=== PATIENT | male | born 1965 | race Caucasian/White ===

== ENCOUNTER 2016-09-09 23:28 | Inpatient (IN) | payer OTHER ==
--- NOTE | ~2016-09-09 | DS ---
Unit #: [id number] #: [id number] Patient: PAULO MELISSA [id number] [address] [address] [id number] MR#: [id number] NAME: PAULO MELISSA. ROOM: 547 Age: 51 Sex: M Admission Date: 09/10/2016 : 1965 Discharge Date: 09/13/2016 Attending Physician: Marychuy Baker M.D. Primary Care Physician: No Primary Care Physician DISCHARGE SUMMARY PRINCIPAL DIAGNOSES 1. Acute exacerbation of chronic obstructive pulmonary disease. 2. Acute exacerbation of chronic systolic congestive heart failure with an ejection fraction of approximately 15%. 3. Polycythemia likely secondary to obstructive sleep apnea. 4. Acute alcohol intoxication. 5. Chronic alcohol abuse without dependence. 6. Atypical lymphocytes secondary to alcohol abuse. Flow cytometry is pending. 7. Macrocytosis secondary to obstructive sleep apnea. 8. Coronary artery disease. 9. Insulin resistance with a hemoglobin A1C of 6.2. 10. Tobaccoism. 11. Obesity. 12. Hypertension. 13. Hyperlipidemia. CONSULTANTS 1. Dr. Ramirez, cardiology. 2. Dr. Frazier, hematology. 3. Dr. Lee, pulmonology. PROCEDURES 1. Two-dimensional echocardiogram on September 10, 2016 with ejection fraction of 15%. Moderately increased size of left ventricle and left ventricular hypertrophy noted. Trace mitral regurgitation noted. 2. Left-sided heart catheterization on September 13, 2016 with ejection fraction of approximately 15% to 20%. Normal left main, 75% in-stent stenosis of the LAD, left circumflex is normal and right coronary artery has 75% stenosis in the mid segment. 3. Chest x-ray on September 09, 2016 with cephalization of pulmonary vasculature consistent with edema. CLINICAL HISTORY AND HOSPITAL COURSE Mr. Melissa is a 51-year-old male who presents to the emergency department with a several-month history of progressive shortness of breath. Please refer to H and P for further details. In the emergency department patient underwent chest x-ray revealing pulmonary edema and BNP was found to be elevated. However, he was also wheezy upon examination and had a low normal oxygen level. He was also intoxicated. Please refer to H and P for further details. In regard to the patient's hypoxia, he was placed on oxygen therapy for a Unit #: [id number] #: [id number] Patient: PAULO MELISSA short period. He was also placed on IV steroids and given diuretics. In regard to his pulmonary edema Dr. Ramirez was consulted. Patient underwent two-dimensional echocardiogram with findings as noted. Patient does have a history of significant coronary artery disease in association with significant medical noncompliance. Troponins were all negative but given his risk factors and his low EF he underwent left-sided heart cath with findings as noted. Unfortunately at this point there is not much intervention for the patient's LAD. However, after discussion between the patient and Dr. Ramirez, the plan is for patient to cease tobacco use, cease alcohol use, take his medications and Dr. Ramirez will reevaluate for stenting of the right coronary artery in the office. Of course, if patient develops signs and symptoms of chest pain he will stent before then. Will also evaluate for AICD placement as an outpatient. He will be discharged home on medications as outlined below. In regard to the patient's wheezing, again he was placed on IV steroids. For a short period these had to be increased and now they have been tapered down. Patient has had normal oxygen saturations ambulating on room air in the low 90s. However, he does have hypoxia at nighttime in association with some significant macrocytic polycythemia, likely indicating some hypoxia at night. For this reason Dr. Lee was consulted and Patient will undergo outpatient polysomnography. In regard to the patient's elevated alcohol level, he was placed on CIWA protocol but never went into any signs of withdrawal. We have discussed alcohol cessation prior to discharge. Dr. Frazier was consulted regarding atypical lymphocytes. Flow cytometry has been done and is currently pending. Patient has not any other B type symptoms and this will just be follows up after discharge. Patient today is clinically stable and will be discharged home. DISCHARGE CONDITION Stable. DISCHARGE STATUS Discharge to home. DISCHARGE MEDICATIONS 1. Symbicort 80/4.5 mcg two puffs b.i.d. 2. Ventolin inhaler two puffs q.4 h. p.r.n. for shortness of breath. 3. Prednisone 10 mg tablets four tablets for two days, three tablets for two days, two tablets for two days, one tablet for two days then discontinue. 4. Coreg 6.25 mg p b.i.d. 5. Lasix 40 mg daily. 6. Atorvastatin 80 mg q.h.s. 7. Lisinopril 5 mg daily. 8. Spironolactone 25 mg daily. 9. Doxycycline 100 mg p.o. b.i.d. for four days. 10. Nitroglycerin 0.4 mg sublingual q.5 minutes p.r.n. for chest pain. 11. Aspirin 81 mg daily. DISCHARGE INSTRUCTIONS 1. The patient was instructed to follow a heart-healthy constant carb diet and he did receive diabetic education. 2. He can increase activity as tolerated. Unit #: [id number] #: [id number] Patient: PAULO MELISSA 3. To refrain from any further alcohol or tobacco use. FOLLOWUP 1. The patient will follow up with Dr. Ramirez as instructed. 2. He will follow up with Dr. David Lee in two weeks and again needs outpatient polysomnography and PFTs. Time spent on discharge 41 minutes. Dictated by... Marychuy Baker M.D. Leo/feliz TD: 09/15/2016 21:36 JOB #: [id number] DISCHARGE SUMMARY X Marychuy Baker MD X DISCHARGE SUMMARY
--- NOTE | ~2016-09-09 | A ---
[facility] Nutrition Therapy DATE: 09/12/16 Patient: PAULO Abbasi SHIN Physician: MILAN Address: [address] [place] [address] DRIVE Room/Bed: [address] [place] [address], Zip: [place] [address] Admit Date: 09/10/16 Date of : [birth year] Height: 5 5 Weight: 201 91.4 NUTRITIONAL ASSESSMENT: REASON: CONSULT RE: DIET EDUCATION PT S 51 Y.0. MALE ADMITTED FOR ACUTE COPD EXAC HT: 5'5", WT: 201# (91 KG), BMI: 33.4 RD ATTEMPTED TO PROVIDE WRITTEN AND VERBAL CC DIET EDUCATION. PT SLEEPY/LETHARGIC AT TIME OF VISIT. PT REPORTS "I ALREADY KNOW WHAT TO DO WITH MY DIET". RD LEFT WRITTEN MATERIAL AT BEDSIDE AT BEDSIDE. RD TO REMAIN AVAILABLE. RECOMMENDATIONS: 1. ENCOURAGE COMPLIANCE OF CURRENT DIET ORDER=CC+HH RD WILL F/U PER PROTOCOL Respectfully, ORLANDO LEMA MS, RD, LD Food and Nutritional Services [facility] cc: client file
--- NOTE | ~2016-09-09 | EKG ---
PATIENT: PAULO MELISSA UNIT #: [id number] Ventricular Rate: 98 BPM Atrial Rate: 98 BPM P-R Interval: 152 ms QRS Duration: 102 ms Q-T Interval: 384 ms QTC Calculation(Bezet): 490 ms P [place]: 63 degrees Calculated R Bon[place]: -70 degrees Calculated T Bon[place]: 32 degrees Diagnosis Line: Normal sinus rhythm Diagnosis Line: Possible Left atrial enlargement Diagnosis Line: Left axis deviation Diagnosis Line: Poor R wave progression questionable lead position Diagnosis Line: or body habitus Diagnosis Line: Abnormal ECG Diagnosis Line: When compared with ECG of 18-JUN-2016 15:31, Diagnosis Line: No significant change was found Diagnosis Line: Confirmed by ROZINA BARBA MD ([id number]) on Diagnosis Line: 09/11/2016 10:36:49 PM INTERPRETING MD: JERRY
--- NOTE | ~2016-09-09 | CO ---
Unit #: [id number] #: [id number] Patient: PAULO MELISSA [id number] [address] [place], [place] [address] [id number] I MR#: [id number] NAME: PAULO MELISSA. ROOM: 547 Age: 51 Sex: M Admission Date: 09/10/2016 : 1965 Attending Physician: Marychuy Baker M.D. CONSULTATION REPORT HISTORY OF PRESENT ILLNESS A 51-year-old white male, we were asked to see for obstructive sleep apnea and COPD, and admitted to the hospital with increasing shortness of breath. Chest x-ray reveals cardiomegaly with an increased pulmonary vascular congestion. He has about a 25 pack year history of smoking. He has had a cough productive of white sputum. No fevers or chills. He has noted some increased lower extremity edema. He has noted increased dyspnea on walking and at work. He does have a history of loud snoring, frequent awakenings, restless sleep, and daytime sleepiness. He has been told by family members that he stops breathing at night and likely has obstructive sleep apnea. He has never been studied for sleep apnea. PAST MEDICAL HISTORY Significant for coronary artery disease, status post [place]. He is also status post PCI. He has a history of systolic congestive heart failure with an ejection fraction of 15%. He has a history of alcohol abuse. He is a binge drinker. Smoking history as noted. He has used cocaine in the past. He has chronic back pain and history of seizures. ALLERGIES He has no known allergies. MEDICATIONS Apparently only albuterol. FAMILY HISTORY Coronary artery disease and congestive heart failure. SOCIAL HISTORY Works at [employer], does walk to work daily but has noted increased shortness of breath. Smokes one pack of cigarettes a day for 25 years, but is trying to quit. Binge drinking of alcohol. Denies other illicit drugs. Did use cocaine in the past. REVIEW OF SYSTEMS CONSTITUTIONAL: No fevers or chills. HEENT: Some shortness of breath as noted. Cough as noted. CARDIAC: No chest pain or palpitations. GI: No nausea or vomiting. : No hematuria or dysuria. ENDOCRINE: No polyuria or polydipsia. HEMATOLOGIC: No easy bruising or bleeding. SKIN: No rash. PSYCHIATRIC: Affect denies. The patient does have a history of chronic Unit #: [id number] #: [id number] Patient: SHINPAULO. PHYSICAL EXAMINATION VITAL SIGNS: Blood pressure is 110/68, pulse 79, respiratory rate 20, afebrile. HEENT: Normocephalic and atraumatic. Pupils are equal, round, and reactive. Sclerae nonicteric. Nasal passages patent. Posterior pharynx clear. Mallampati IV. NECK: Supple. Trachea is midline. No cervical or supraclavicular lymphadenopathy. LUNGS: Reveal diminished breath sounds. Crackles in the bases. CARDIAC: Heart sounds distant. Regular rate and rhythm. Could not appreciate murmur, rub, or gallop. ABDOMEN: Protuberant, nontender, bowel sounds present. Umbilical hernia noted. No hepatosplenomegaly could be appreciated. EXTREMITIES: Without clubbing, cyanosis, or edema. Diminished peripheral pulses. NEUROLOGIC: Awake and oriented x3. Cranial nerves intact. Muscle strength symmetric bilaterally. DIAGNOSTIC STUDIES IMAGING STUDIES: Chest x-ray, personally reviewed as noted above. LABORATORY RESULTS: Chemistries reviewed. Creatinine is 1.1. Cardiac enzymes were negative. BNP is 609. TSH is 0.91. Alcohol level 394 on admission on the . White count 10,000, hematocrit 53.2, platelet count normal. Admission hematocrit was 46.4. IMPRESSION 1. Congestive heart failure, acute systolic. 2. Coronary artery disease. 3. Ejection fraction of 15%. 4. Chronic obstructive pulmonary disease with history of tobacco abuse. 5. Probable obstructive sleep apnea with history of snoring, restless sleep, witnessed apneic episodes, daytime sleepiness, and polycythemia, mild. 6. Tobacco and alcohol use, history of cocaine use. PLAN We will begin bronchodilator therapy, O2 to maintain adequate saturations. Outpatient evaluation with PFTs and PSG for evaluation of obstructive sleep apnea and treatment with CPAP. Today, we discussed sleep apnea, with his policy adviser, some of his treatment options in detail. We will check overnight oximetry. Further recommendations pending this. Dictated by... Corey Lee M.D. EVA/hans TD: 09/13/2016 00:54 JOB #: [id number] Unit #: [id number] #: [id number] Patient: PAULO MELISSA CONSULTATION REPORT X Corey Lee MD CONSULTATION REPORT
--- NOTE | ~2016-09-09 | HP ---
Unit #: [id number] #: [id number] Patient: PAULO MELISSA [id number] [address] [place], [place] [address] [id number] I MR#: [id number] NAME: PAULO MELISSA. ROOM: 547 Age: 51 Sex: M Admission Date: 09/10/2016 : 1965 Attending Physician: Cecilio Chambers M.D. Primary Care Physician: No Primary Care Physician HISTORY AND PHYSICAL CHIEF COMPLAINT Shortness of breath. HISTORY OF PRESENT ILLNESS Mr. Melissa is a 51-year-old, male with an extensive medical history who presents to the ER for above. I will note history is taken from patient, but he is a rather vague historian and he is difficult to obtain details from. Patient states he has been progressive short of breath for the last 6-9 months. He walks to work daily and he has noticed over the last several months that he has to stop while walking to work because he feels short of breath. This particularly got worse over the last 2-3 days. This has been associated with a cough that is nonproductive particularly over the last several days, but has also been associated with some swelling. Patient intermittently states he has fevers. He also intermittently has night sweats though he does not soak the bed. He continues to smoke, but has cut down from a pack per day to 1-2 cigarettes per day. He began feeling worse and thus presented to the emergency department. Upon presentation, vital signs were stable with O2 sats of 90% on room air. Patient was afebrile. Chest x-ray revealed pulmonary edema. Patient was given 125 mg of Solu-Medrol and 40 of Lasix and subsequently admitted. He still states he is feeling short of breath and continued to cough during examination. He endorses shortness of breath lying flat and symptoms of paroxysmal nocturnal dyspnea, as well. He has not seen any doctors in several years. I will also note patient is acutely intoxicated with an alcohol level of almost 400 upon presentation. Patient is being admitted for further evaluation. PAST MEDICAL HISTORY 1. Coronary artery disease, status post [place] x3. Patient had a significant myocardial infarction in 2009 at [facility] with a troponin of 149. At that time, he had angioplasty of the LAD with associated intrastent stenosis and thrombectomy of the LAD and second diagonal branch of the LAD. Patient also had MIs in 2006 and 2007. 2. Systolic congestive heart failure. Last two-dimensional echocardiogram at this hospital in 2012 revealed an ejection fraction of 15% to 20%. This was felt to be ischemic in origin. 3. Alcohol abuse, reportedly a binge drinker. 4. Hyperlipidemia. 5. Tobaccoism. 6. Prior history of cocaine use. 7. Chronic back pain. 8. Prior history of seizure. PAST SURGICAL HISTORY Unit #: [id number] #: [id number] Patient: PAULO MELISSA Coronary stenting in 2009, as previously noted above, with stenting in 2004 and 2007 as well. ALLERGIES No known drug allergies. HOME MEDICATIONS Reportedly albuterol only. FAMILY HISTORY Significant for coronary artery disease and congestive heart failure. SOCIAL HISTORY Patient works at [employer] and does walk to work daily. He smokes 1-2 cigarettes per day and binge drinks alcohol, but really will not quantify an amount nor will he specifically give me frequency. Denied illicit drug use. REVIEW OF SYSTEMS Again, shortness of breath and cough, as noted above. He does intermittently have chest pain, which is more present coughing. He denies any nausea, vomiting, constipation, diarrhea, and dysuria. He denies having any recent falls. He does have night sweats, but denies really losing much weight. He does endorse lower extremity edema. Otherwise, 10-point review of systems was reviewed and is negative. PHYSICAL EXAMINATION VITAL SIGNS: Temperature 97.7, blood pressure 137/95, pulse rate 95, respiratory rate 18, and oxygen saturation is 92% on room air. GENERAL: Patient is awake. He is alert. He is oriented x3, but is anxious. HEENT: Pupils equal, round, and reactive to light bilaterally. Anicteric sclerae. No conjunctival pallor. Oropharynx with moist mucous membranes. No erythema or exudate. Patient is missing several teeth and dentition is poor. NECK: Supple. No lymphadenopathy. No thyromegaly. No significant JVD. HEART: Regular rate and rhythm without murmur, rub, or gallop. LUNGS: Reveal diffuse crackles bilaterally. No appreciable wheezes. Breath sounds are diminished. ABDOMEN: Obese, soft, nontender, and nondistended. Positive bowel sounds. Could not appreciate any hepatosplenomegaly, but examination was limited secondary to positioning. EXTREMITIES: No cyanosis or clubbing and trace lower extremity nonpitting edema. Pedal pulses 2/4. SKIN: Warm and moist without rash grossly. NEUROLOGIC: Cranial nerves, II-XII, intact. Sensation, strength, and deep tendon reflexes are grossly normal. PSYCHIATRIC: (1) anxious, but appropriate affect. No suicidal or homicidal ideation. DIAGNOSTIC STUDIES LABORATORY: Lab work done in the emergency department reveals negative troponin of 0.05 upon presentation. CBC reveals white blood cell count of 6.8, hemoglobin 16, platelet count of 162,000, and MCV of 107. Differential, however, reveals 38% neutrophils and 55% lymphocytes, some of which are noted to be atypical. BNP is elevated at 609. Basic metabolic panel reveals a sodium of 135, potassium 4.2, chloride 98, bicarb 26, BUN 6, creatinine 0.8, and glucose of 118. Alcohol is 394. Unit #: [id number] #: [id number] Patient: PAULO MELISSA IMAGING: Chest x-ray reveals significant pulmonary edema and appears to be to also have an associated right-sided pleural effusion and significant cardiomegaly. ASSESSMENT 1. Acute exacerbation of chronic systolic congestive heart failure with last known ejection fraction of approximately 15% to 20%. 2. Mild exacerbation of COPD. 3. Acute alcohol intoxication. 4. Atypical lymphocytes. 5. Macrocytosis. 6. Coronary artery disease, status post stenting x3. 7. Chronic alcohol abuse with questionable dependence. 8. Tobaccoism. 9. History of hyperlipidemia. 10. Obesity. PLAN 1. Will admit patient to telemetry as inpatient. 2. Place patient on Lasix 40 mg IV q.12 hours and obtain a two-dimensional echocardiogram. Will also consult Dr. Ramirez given patient's significant coronary history and I believe he needs to be followed up by cardiology long-term. I am going to place him on a low dose of lisinopril and Coreg given I suspect his congestive heart failure is still significant. 3. Will place patient on DuoNeb nebulizer treatments and low-dose Solu-Medrol in regards to his COPD in addition to empiric doxycycline and monitor. 4. I will place patient on CIWA protocol and Ativan only for alcohol withdrawal. I am going to hold on any scheduled Librium given he does not appear significantly tremulous right now. I will also place him on folate and thiamine therapy. 5. I am going to consult hematology regarding patient's atypical lymphocytes, particularly in light of him having some night sweats. I am concerned that, perhaps, it is something else underlying this laboratory abnormality. 6. Will recheck fasting lipid panel in addition a troponin to ensure troponin remains normal. 7. Briefly counseled regarding tobaccoism. Will provide a nicotine patch. 8. Will check TSH, liver function panel, and magnesium all off blood in lab for completeness. I am also going to check a urine drug screen given his prior history of drug abuse. 9. DVT and GI prophylaxes. Dictated by Marychuy Baker M.D. MELANIE/shubham TD: 09/10/2016 08:40 JOB #: [id number] Unit #: [id number] #: [id number] Patient: PAULO MELISSA Ayleen HISTORY AND PHYSICAL X Marychuy Baker MD HISTORY AND PHYSICAL
--- NOTE | ~2016-09-09 | EKG ---
PATIENT: PAULO MELISSA UNIT #: [id number] Ventricular Rate: 75 BPM Atrial Rate: 75 BPM P-R Interval: 148 ms QRS Duration: 98 ms Q-T Interval: 396 ms QTC Calculation(Bezet): 442 ms P [place]: 47 degrees Calculated R [place]: -56 degrees Calculated T [place]: -36 degrees Diagnosis Line: Normal sinus rhythm Diagnosis Line: Possible Left atrial enlargement Diagnosis Line: Left axis deviation Diagnosis Line: Anterolateral infarct , age undetermined Diagnosis Line: Abnormal ECG Diagnosis Line: Diagnosis Line: Confirmed by SANDRA BLACK MD ([id number]) on 09/14/2016 Diagnosis Line: 7:30:49 PM INTERPRETING MD: SOFIA MIRANDA
--- NOTE | ~2016-09-09 | CO ---
Unit #: [id number] #: [id number] Patient: PAULO PÉREZ [id number] [address] [place], [place] [address] [id number] I MR#: [id number] NAME: PAULO PÉREZ. ROOM: 547 Age: 51 Sex: M Admission Date: 09/10/2016 : 1965 Attending Physician: Cecilio Chambers M.D. CONSULTATION REPORT HISTORY OF PRESENT ILLNESS Mr. Pérez is a very pleasant 51-year-old gentleman with a history of congestive heart failure; 1. With an EF of 15%. 2. What looks like chronic obstructive pulmonary disease. 3. Ischemic heart disease in the past. He is a very pleasant gentleman, who wants to work at [email or web address] over the last 6 months, he has noted progressive increase in shortness of breath. His shortness of breath increased in crescendo over the last 2 to 3 days. He had no fevers, chills, or sweats, but states that he could not walk as much as before. He came to the emergency room to be evaluated. In the emergency room, he had an alcohol level of 0.4 upon presentation. He had O2 sats of 90% on room air when he presented, and chest x-ray looks like pulmonary edema. He was admitted to the hospital for care. SOCIAL HISTORY He continued to smoke. He has cut down to about half a pack reportedly per day. He continues to drink a 6 pack a day. He has quit using marijuana and cocaine. He said that was years ago and has been drinking and smoking tobacco recently. PAST MEDICAL HISTORY 1. Significant for coronary artery disease, status post MD x3. In 2009, he had a significant MD with troponin of 149. He also had MIs in 2006 and 2007. 2. Congestive heart failure with an EF on the current admission of 15%. 3. Alcohol abuse. 4. Hyperlipidemia. 5. Chronic tobacco use. 6. Prior cocaine. 7. Prior marijuana. 8. Chronic back pain. 9. Prior history of seizure. FAMILY HISTORY Negative for blood disorders, but is positive for coronary artery disease, congestive heart failure. He says his mother goes to the doctor a lot. REVIEW OF SYSTEMS 1. Shortness of breath that has been a crescendo pattern over the last several days. 2. Back pain. 3. No acute chest pain. 4. He does have sweats with the shortness of breath. Unit #: [id number] #: [id number] Patient: PAULO PÉREZ 5. Edema to his abdomen with what sounds like ascites. 6. Lower extremity edema. A 12-point review of systems is otherwise negative. PHYSICAL EXAMINATION VITAL SIGNS: Shows temperature 97.7, blood pressure 137/95, pulse rate 95, respirations are 20, 90% sats on room air. GENERAL: He is awake. He is alert. He is oriented to person, place, and time. He is anxious. HEENT: His eyes show no scleral icterus. He does have injection of the conjunctiva. He has no scleral icterus today. NECK: Shows no JVP. Trachea in the midline. LUNGS: Show some rales. No wheezes. Decreased breath sounds symmetrically. HEART: Regular rate and rhythm. EXTREMITIES: 2+ edema in the legs. ABDOMEN: Distended, nontender. He has an umbilical hernia that is large, that is tender to palpation. No other tenderness in abdomen. SKIN: Shows no rashes, no ulcers, no nodules. NEUROLOGIC: Cranial nerves II through XII are intact. Symmetric strength. Sensations intact as well. PSYCHIATRIC: A little bit anxious, but appropriate. Makes good eye contact. Remainder of the 12 point physical exam is negative. DIAGNOSTIC STUDIES LABORATORY RESULTS: Of note, he did have a lymphocytosis with a lymphocyte count in 3000 to 3500 range. He has an elevated MCV that was noted of 107 and has a hemoglobin of 16, white count of 6.8, and platelet count of 162,000. ASSESSMENT 1. Very pleasant gentleman with a diagnosis of congestive heart failure secondary to ischemic heart disease. He comes in with congestive heart failure exacerbation. 2. He has an elevated MCV and has a history of heavy alcohol abuse and came in with a blood alcohol level of 0.4 when he presented to the hospital with shortness of breath. He admits to a 6 pack a day of beer. 3. He has an MCV, which is elevated most probably due to his alcohol use and lung disease. I am going to go ahead and get B12 and folate and a protein electrophoresis to look at that. 4. He has a mild lymphocytosis; although, his lymphocytosis is less than 5000, absolute lymphocyte count occur for calling an absolute lymphocytosis of 5000, but with an elevation of the lymphocyte count, I am going to go ahead and send a peripheral flow cytometry to make sure that there was not a monoclonal lymphocyte population. If there is, most probably is going to be a monoclonal lymphocytosis of undetermined significance, something that we watch that is a precursor to development of a lymphoid process and I will see him tomorrow and will follow with you. I would like to thank you for the patient. Dictated by... Bianca Husain/hans TD: 09/10/2016 15:42 JOB #: [id number] Unit #: [id number] #: [id number] Patient: PAULO PÉREZ CONSULTATION REPORT X X CONSULTATION REPORT
--- NOTE | ~2016-09-09 | CO ---
Unit #: [id number] #: [id number] Patient: PAULO MELISSA [id number] [address] [place], [place] [address] [id number] I MR#: [id number] NAME: PAULO MELISSA. ROOM: 547 Age: 51 Sex: M Admission Date: 09/10/2016 : 1965 Attending Physician: Cecilio Chambers M.D. CONSULTATION REPORT REASON FOR CONSULTATION Heart failure. HISTORY OF PRESENT ILLNESS This is a 51-year-old white male, who had a stent to the LAD in 2004. In 2007, he had an ST elevation myocardial infarction and underwent thrombectomy to the proximal LAD and second diagonal branch. The previously placed stent had 80% in-stent stenosis that underwent angioplasty. According to the patient, he was also seen in 2009 at [facility], where he had another stent placed. He is known to have chronic systolic heart failure, where his ejection fraction per echocardiogram in 2012 was 15% to 20%. The patient is admitted to the hospital with worsening dyspnea. He states his dyspnea has been progressively worsening over the past 6 months, where it now affects his work. He feels as if he is not getting enough oxygen. He reports paroxysmal nocturnal dyspnea, orthopnea, and cough. He has an increase in his abdominal girth, but no leg edema. He has tightness across both shoulders and his chest that has occasionally went into his jaw. His tightness occurs off and on. The discomfort is "close" to his chest pain he experienced with his myocardial infarction. His breathing is so severe at times, where he feels panicky and feels as if he can pass out. He has angina that occurs on exertion with walking. In the emergency room, there was elevation of BNP of 609. His chest x-ray was noted for heart failure. He has not been told to follow fluid restriction. Troponin negative with no acute ischemic changes on his EKG. PAST MEDICAL HISTORY 1. Angioplasty with stent placement to the LAD in 2004. 2. ST elevation anterior wall myocardial infarction on 11/28/2007, status post urgent cardiac catheterization per Dr. Calzada at [facility] with left main normal. LAD had a moderate length stents at early proximal and also in the mid LAD. There is total occlusion of the LAD. Ramus intermedius branch normal. Left circumflex artery with 50% to 60% stenosis of the obtuse marginal branch. Right coronary artery dominant vessel normal. Ejection fraction of 25% to 30%. 3. Status post AngioJet thrombectomy of the LAD and second diagonal branch of the LAD. Balloon angioplasty only of the in-stent stenosis of the proximal LAD. 4. Angioplasty and stents of unknown vessel at [facility] in 2009, no details available. 5. 2D echocardiogram on 02/05/2013 shows an ejection fraction of 15% to 20% with a large area of anterolateral and apical severe hypokinesis to Unit #: [id number] #: [id number] Patient: PAULO MELISSA akinesis. Aortic valvular leaflets are sclerotic without stenosis. 6. Ischemic cardiomyopathy. 7. Hypertension. 8. Hyperlipidemia. 9. Obstructive sleep apnea. 10. Active smoker. 11. EtOH abuse. PAST SURGICAL HISTORY No previous surgeries. SOCIAL HISTORY The patient works at [employer]. He smokes one to two cigarettes a day, cut down from one pack a day. Drinks 1 to 2 beers on occasion, but has a history of extensive alcohol use in the past. ALLERGIES No known drug allergies. HOME MEDICATIONS No current medications. REVIEW OF SYSTEMS CONSTITUTIONAL: Negative for fever or chills. Positive for weight gain. No weight loss. HEENT: No headache, hearing or vision changes, or difficulty with swallowing. Negative for dizziness. CARDIOVASCULAR: Has chest discomfort described in the HPI. Positive for palpitations. Reports paroxysmal nocturnal dyspnea and orthopnea. Positive for near syncope. RESPIRATORY: Has dyspnea at rest worse on exertion. Has a cough that is productive. No hemoptysis. GASTROINTESTINAL: No abdominal pain, but reports an increase in his abdominal girth. No nausea, vomiting, or diarrhea. EXTREMITIES: Have occasional ankle edema. PHYSICAL EXAMINATION VITAL SIGNS: Blood pressure 155/106, heart rate 113, and temperature 97.8. BMI 34. GENERAL: This is a 51-year-old obese white male, who is in no acute respiratory distress. NEUROLOGIC: He is awake, alert, and oriented without focal weaknesses. NECK: Trachea is midline. No thyromegaly or lymphadenopathy. No jugular venous distention. No carotid bruits. CARDIOVASCULAR: S1 and S2 with a positive S3 and S4. Has an increase in his heart size. Regular rate and rhythm, but is tachycardic. LUNGS: With rales in the right lung base. ABDOMEN: Soft and obese with bowel sounds present. No ascites or organomegaly. EXTREMITIES: Without leg edema. SKIN: Warm and dry. DIAGNOSTIC STUDIES LABORATORY RESULTS: Glucose 148, BUN 7, creatinine 0.8, sodium 137, potassium 3.5, troponin less than 0.05 to 0.05. BNP 609. White count 3.9, hemoglobin 17.2, hematocrit 50.7, and platelet count is 157. IMAGING STUDIES: Chest x-ray shows an increase in his heart size and Unit #: [id number] #: [id number] Patient: PAULO MELISSA congestive heart failure. CARDIOVASCULAR STUDIES: EKG, normal sinus rhythm, rate of 98 beats per minute with Q-waves noted in I and aVL with questionable old high lateral infarct. There is left axis deviation, poor R-wave progression, questionable old anterior infarct, and left anterior fascicular block. IMPRESSION 1. Acute on chronic systolic heart failure. 2. Ischemic cardiomyopathy. 3. History of myocardial infarction, status post multiple angioplasty and stent placement to the LAD. 4. Hypertension. 5. Hyperlipidemia. 6. Chronic obstructive pulmonary disease. 7. Obesity. 8. Obstructive sleep apnea by history. 9. Nicotine abuse. PLAN 1. Cardiology was consulted for heart failure. We will continue the patient on IV diuretics. 2. We will add Aldactone. 3. Place the patient on fluid restriction. 4. Continue beta-roman, DAVINA inhibitor, and statin. We will continue aspirin. 5. May need cardiac catheterization to define his coronary anatomy because of exertional and rest angina. 6. We will follow the patient with you. Thank you for allowing us to assist in this patient's care. Dictated by... Kraig Otto A.P.R.N. for Bianca Martin/hans TD: 09/10/2016 19:17 JOB #: [id number] CC: [facility] CONSULTATION REPORT X Kraig Otto APRN X CONSULTATION REPORT
--- NOTE | ~2016-09-09 | CR72 ---
[facility] A Service of [facility] & [facility] RADIOLOGY TEXT RESULTS PATIENT: PAULO MELISSA LOCATION: [facility] 54- : 65 UNIT #: [id number] AGE: [address]: Marychuy Baker MD SEX: M ORDER DR: [id number] [facility] [address] [place], [place] [address] [id number] I MR#: [id number] Acc #: [id number] NAME: PAULO MELISSA. : 1965 SEX: M STUDY DATE/TIME: 09/09/2016 23:45 UNIT: [facility] ROOM: [facility] STUDY DESCRIPTION: CR Chest Single View Portable Attending Physician: Cecilio Chambers M.D. Ordering Physician: Jimmy Colon M.D. Primary Care Physician: No Primary Care Physician MEDICAL IMAGING REPORT This report is preliminary unless electronic signature is present EXAM Portable AP view of the chest COMPARISON June 18, 2016 and November 25, 2015. INDICATION 51-year-old male with dyspnea and chest congestion today. FINDINGS Possibly due to apical lordotic technique heart size appears increasingly enlarged. There appears to be increasing cephalization of pulmonary vasculature with increasing mild diffuse pulmonary vascular indistinctness, perhaps reflecting mild interstitial edema. There is hazy attenuation over the left lower lung which may be due to soft tissue shadow and cardiac shadow. Left basilar atelectasis, pneumonia and/or pleural effusion cannot entirely be excluded. No evidence of pneumothorax. Mild osteoarthritis of the left glenohumeral joint. IMPRESSION 1. Exam is limited by apical lordotic technique. Heart size appears to be increasingly enlarged but this may be a product of positioning factors. 2. There is increasing pulmonary vascular indistinctness throughout the lungs likely reflecting mild interstitial edema. There is hazy attenuation over the left lower chest which may be a product of soft tissue and cardiac shadow but left basilar atelectasis, pneumonia and/or small pleural effusion cannot entirely be excluded. Dictated by... Harish Espinal M.D. THIS IS AN ELECTRONICALLY VERIFIED REPORT [facility] A Service of [facility] RADIOLOGY TEXT RESULTS PATIENT: PAULO MELISSA LOCATION: [facility] [id number] : [birth year] UNIT #: [id number] AGE: [address]: Marychuy Baker MD SEX: M ORDER DR: Harish Espinal M.D. at 09/13/2016 7:42 PM LARRY/tal TD: 09/10/2016 05:07 JOB #: [id number] MEDICAL IMAGING REPORT COPY
[2016-09-09 23:28] LABS: BASOPHIL% 0.4 % (0-2.5); EOSINOPHIL% 0.5 % (0.0-7.0); HEMATOCRIT 46.4 % (38.0-50.0); LYMPHOCYTE# 3.1 X10e3 (1.0-3.5); LYMPHOCYTE% 45.1 % (17.0-45.0); MEAN CELL VOLUME 106.6 FL (83-96); MEAN CORPUSCULAR HEMOGLOBIN 36.8 PG (28-34); MEAN CORPUSCULAR HGB CONC 34.6 g/dL (30-36); MONOCYTE# 0.5 X10e3 (0-1.0); MONOCYTE% 8.1 % (3.0-12.0); NEUTROPHIL# 3.1 X10e3 (1.5-7.1); NEUTROPHIL% 45.9 % (40-75); PLATELET COUNT 162 X10e3 (140-420); RED BLOOD COUNT 4.35 X10e (3.90-5.60); RED CELL DISTRIBUTION WIDTH 13.4 % (11.0-15.5); WHITE BLOOD COUNT 6.8 X10e3 (4.0-10.5)
[~2016-09-09 23:28] MED LIST: ALBUTEROL17 GM INH; BACTRIM DS TABL1 TAB PO; BROMFED DM COU118 ML PO; MORGIDOX100 MG PO; NO MEDICATIONS; PRAVACHOL PO; TICLID250 MG PO; VICODIN 5/500 T1 TAB PO; VOLTAREN75 MG PO
[2016-09-09 23:29] LABS: DIFF IND YES
[2016-09-09 23:33] LABS: POC - CKMB 2.5 ng/mL (0.0-7.9); POC - TROPONIN <0.05 ng/mL (<=0.05)
[2016-09-09 23:44] LABS: ANISOCYTOSIS SL; PLATELET ESTIMATE NORMAL (NORMAL)
[2016-09-09 23:58] LABS: BLOOD UREA NITROGEN 6 mg/dL (9-23); CALCIUM SERUM 8.4 mg/dL (8.4-10.2); CARBON DIOXIDE 26 mmol/L (22-31); CHLORIDE 98 mmol/L (100-111); CREATININE SERUM 0.8 mg/dL (0.6-1.4); GLOM FILT RATE Estimated ABOVE60 mL/min (>60); GLUCOSE FASTING 119 mg/dL (70-110); POTASSIUM 4.2 mmol/L (3.5-5.1); SODIUM 135 mmol/L (135-145)
[2016-09-10 00:04] LABS: ALCOHOL BLOOD 394 mg/dL (0)
[2016-09-10] MEDS ORDERED: NO MEDICATIONS (00:10)
[2016-09-10 09:29] LABS: BASOPHIL% 0.7 % (0-2.5); DIFF IND NO; EOSINOPHIL% 0.2 % (0.0-7.0); HEMATOCRIT 50.7 % (38.0-50.0); HEMOGLOBIN 17.2 gm/dL (13.0-16.0); LYMPHOCYTE# 0.5 X10e3 (1.0-3.5); LYMPHOCYTE% 13.2 % (17.0-45.0); MEAN CELL VOLUME 106.4 FL (83-96); MEAN CORPUSCULAR HEMOGLOBIN 36.1 PG (28-34); MEAN CORPUSCULAR HGB CONC 33.9 g/dL (30-36); MEAN PLATELET VOLUME 7.2 FL (6.5-11.5); MONOCYTE# 0.1 X10e3 (0-1.0); MONOCYTE% 1.4 % (3.0-12.0); NEUTROPHIL# 3.3 X10e3 (1.5-7.1); NEUTROPHIL% 84.5 % (40-75); PLATELET COUNT 157 X10e3 (140-420); RED BLOOD COUNT 4.76 X10e (3.90-5.60); RED CELL DISTRIBUTION WIDTH 13.7 % (11.0-15.5); WHITE BLOOD COUNT 3.9 X10e3 (4.0-10.5)
[2016-09-10 09:48] LABS: BLOOD UREA NITROGEN 7 mg/dL (9-23); BUN/CREATININE RATIO 8.75; CALCIUM SERUM 8.6 mg/dL (8.4-10.2); CARBON DIOXIDE 25 mmol/L (22-31); CHLORIDE 97 mmol/L (100-111); CREATININE SERUM 0.8 mg/dL (0.6-1.4); GLOM FILT RATE Estimated ABOVE60 mL/min (>60); GLUCOSE FASTING 148 mg/dL (70-110); POTASSIUM 3.5 mmol/L (3.5-5.1); SODIUM 137 mmol/L (135-145)
[2016-09-10 10:27] LABS: ALBUMIN SERUM 4.3 g/dL (3.5-5.0); BILIRUBIN, DIRECT 0.3 mg/dL (0.0-0.2); BILIRUBIN,INDIRECT 1.1 mg/dL (0.0-0.9); BILIRUBIN,TOTAL 1.4 mg/dL (0.2-2.0); MAGNESIUM 1.5 mg/dL (1.6-3.0); PROTEIN TOTAL SERUM 7.7 g/dL (6.0-8.3)
[2016-09-10 15:43] LABS: FOLATE (FOLIC ACID) >24.0 ng/mL (>5.8)
[2016-09-11 05:11] LABS: URINE APPEARANCE CLEAR; URINE BILIRUBIN NEG (NEG); URINE BLOOD TRACE (NEG); URINE COLOR YELLOW; URINE GLUCOSE NEG (NEG); URINE KETONE NEG (NEG); URINE LEUKOCYTE ESTERASE NEG (NEG); URINE NITRATE NEG (NEG); URINE PROTEIN 1+ (NEG); URINE SPECIFIC GRAVITY 1.017 (1.003-1.035); URINE UROBILINOGEN 0.2 MG/DL (NEG)
[2016-09-11 05:13] LABS: URINE BACTERIA AUWI NEG (NEGATIVE); URINE SQUAMOUS EPITHELIAL CELL NONE SEEN /[HPF]; UWBCS1 AUWI 0-2 (0-5)
[2016-09-11 05:36] LABS: HEMATOCRIT 55.8 % (38.0-50.0); HEMOGLOBIN 19.1 gm/dL (13.0-16.0); MEAN CELL VOLUME 106.3 FL (83-96); MEAN CORPUSCULAR HEMOGLOBIN 36.4 PG (28-34); MEAN CORPUSCULAR HGB CONC 34.3 g/dL (30-36); MEAN PLATELET VOLUME 7.8 FL (6.5-11.5); RED BLOOD COUNT 5.25 X10e (3.90-5.60); RED CELL DISTRIBUTION WIDTH 13.7 % (11.0-15.5); WHITE BLOOD COUNT 8.6 X10e3 (4.0-10.5)
[2016-09-11 06:00] LABS: AMPHETAMINE NEG (NEG); BARBITURATES NEG (NEG); BENZODIAZEPINES POS (NEG); COCAINE NEG (NEG); MARIJUANA NEG (NEG); OPIATES POS (NEG); TRICYCLIC ANTIDEPRESSANTS NEG (NEG); U METHADONE NEG (NEG)
[2016-09-11 06:25] LABS: BLOOD UREA NITROGEN 18 mg/dL (9-23); CALCIUM SERUM 9.3 mg/dL (8.4-10.2); CARBON DIOXIDE 29 mmol/L (22-31); CHLORIDE 94 mmol/L (100-111); CHOLESTEROL 265 mg/dL (0-200); CREATININE SERUM 0.9 mg/dL (0.6-1.4); GLOM FILT RATE Estimated ABOVE60 mL/min (>60); GLUCOSE FASTING 125 mg/dL (70-110); HDL CHOLESTEROL >135 mg/dL (29-75); LDL CHOLESTEROL 103 mg/dL (-130); LDL/HDL RATIO 0 RATIO (0-4); MAGNESIUM 1.9 mg/dL (1.6-3.0); POTASSIUM 3.5 mmol/L (3.5-5.1); SODIUM 138 mmol/L (135-145); TRIGLYCERIDES 135 mg/dL (10-160)
[2016-09-12 07:51] LABS: HEMATOCRIT 53.2 % (38.0-50.0); HEMOGLOBIN 18.1 gm/dL (13.0-16.0); MEAN CELL VOLUME 107.2 FL (83-96); MEAN CORPUSCULAR HEMOGLOBIN 36.4 PG (28-34); MEAN PLATELET VOLUME 8.6 FL (6.5-11.5); RED BLOOD COUNT 4.96 X10e (3.90-5.60); RED CELL DISTRIBUTION WIDTH 13.5 % (11.0-15.5)
[2016-09-12 08:33] LABS: BLOOD UREA NITROGEN 38 mg/dL (9-23); BUN/CREATININE RATIO 34.54; CALCIUM SERUM 9.1 mg/dL (8.4-10.2); CARBON DIOXIDE 28 mmol/L (22-31); CHLORIDE 94 mmol/L (100-111); CREATININE SERUM 1.1 mg/dL (0.6-1.4); GLOM FILT RATE Estimated ABOVE60 mL/min (>60); GLUCOSE FASTING 190 mg/dL (70-110); POTASSIUM 3.6 mmol/L (3.5-5.1); SODIUM 139 mmol/L (135-145)
[2016-09-13 03:46] LABS: ARTERIAL BLD GAS O2 SATURATION 87.2 % (90.0-100.0); ARTERIAL BLOOD GAS CARBOXY HB 2.3 %sat (0.0-9.0); ARTERIAL BLOOD GAS HCO3 33.3 mmol/L; ARTERIAL BLOOD GAS MET HB 0.9 %sat (0.0-2.0); ARTERIAL BLOOD GAS PCO2 47.4 mmHg (35.0-45.0); ARTERIAL BLOOD GAS pH 7.455 (7.350-7.450)
[2016-09-13 03:47] LABS: ARTERIAL BLOOD GAS ALLEN TEST NORMAL; ARTERIAL BLOOD GAS ART SITE RIGHT RADIAL; ARTERIAL BLOOD GAS DELIVERY ROOM AIR; ARTERIAL BLOOD GAS PO2 59.7 mmHg (80.0-100); ARTERIAL DRAW? YES
[2016-09-13 07:44] LABS: HEMATOCRIT 48.1 % (38.0-50.0); HEMOGLOBIN 16.3 gm/dL (13.0-16.0); MEAN CELL VOLUME 107.4 FL (83-96); MEAN CORPUSCULAR HEMOGLOBIN 36.4 PG (28-34); MEAN CORPUSCULAR HGB CONC 33.9 g/dL (30-36); MEAN PLATELET VOLUME 8.4 FL (6.5-11.5); RED BLOOD COUNT 4.48 X10e (3.90-5.60); RED CELL DISTRIBUTION WIDTH 13.4 % (11.0-15.5); WHITE BLOOD COUNT 14.5 X10e3 (4.0-10.5)
[2016-09-13 08:04] LABS: INR 1.1; PARTIAL THROMBOPLASTIN TIME 37.9 SECONDS (23.5-31.3); PROTHROMBIN TIME (PATIENT) 11.8 SECONDS (9.6-11.5)
[2016-09-13 09:00] LABS: BLOOD UREA NITROGEN 27 mg/dL (9-23); CALCIUM SERUM 7.1 mg/dL (8.4-10.2); CARBON DIOXIDE 26 mmol/L (22-31); CHLORIDE 103 mmol/L (100-111); CREATININE SERUM 0.6 mg/dL (0.6-1.4); GLOM FILT RATE Estimated ABOVE60 mL/min (>60); GLUCOSE FASTING 125 mg/dL (70-110); SODIUM 141 mmol/L (135-145)
[2016-09-13] MEDS ORDERED: SYMBICORT INH (15:41)
[2016-09-13] MEDS ORDERED: COREG6.25 M1 PO (15:42)
[2016-09-13] MEDS ORDERED: FUROSEMIDE40 MG PO (15:43)
[2016-09-13] MEDS ORDERED: LIPITOR80 MG PO (15:43)
[2016-09-13] MEDS ORDERED: ZESTRIL5 MG PO (15:43)
[2016-09-13] MEDS ORDERED: ALDACTONE25 MG PO (15:44)
[2016-09-13] MEDS ORDERED: ASPIRIN81 MG PO (15:44)
[2016-09-13] MEDS ORDERED: NITROSTAT0.4 MG SL (15:45)
[2016-09-13] MEDS ORDERED: VIBRAMYCIN100 M1 PO (15:45)
[2016-09-13] MEDS ORDERED: STERAPRED5 MG/DOSE1 PO (15:47)
[2016-09-13] MEDS ORDERED: ALBUTEROL17 GM INH (15:48)
[2016-09-13 22:14] LABS: SPE A1GLOB (PNL) 0.4 g/dL (0.2-0.3); SPE A2GLOB (PNL) 0.8 g/dL (0.5-0.9); SPE ALB (PNL) 4.4 g/dL (3.8-4.8); SPE BETA 1 GLOBULIN 0.6 g/dL (0.4-0.6); SPE BETA 2 GLOBULIN 0.3 g/dL (0.2-0.5); SPE GAMMA (PNL) 1.1 g/dL (0.8-1.7); SPETP (PNL) 7.6 g/dL (6.1-8.1)
[2016-09-14 21:44] LABS: ERYTHROPOIETIN 2.7 mIU/mL (2.6-18.5)
== END 2016-09-13 19:00 | disposition home or self-care (01) | DRG 287 ==
LOC: CED 23:28 → CEDOF 09-10 01:14 → C5B 09-10 02:58
PROVIDERS: Emergency Medicine; Internal Medicine; Internal Medicine Cardiovascular Disease; Internal Medicine Hematology & Oncology
PROC: B246YZZ Ultrasonography of Right and Left Heart using Other Contrast (ICD-10-PCS; 2016-09-10)
PROC: 4A023N7 Measurement of Cardiac Sampling and Pressure, Left Heart, Percutaneous Approach (ICD-10-PCS; principal; 2016-09-13)
PROC: B211YZZ Fluoroscopy of Multiple Coronary Arteries using Other Contrast (ICD-10-PCS; 2016-09-13)
PROC: B215YZZ Fluoroscopy of Left Heart using Other Contrast (ICD-10-PCS; 2016-09-13)
DX: I11.0 Hypertensive heart disease with heart failure (principal); T82.855A Stenosis of coronary artery stent, initial encounter; E88.81 Metabolic syndrome and other insulin resistance; J44.1 Chronic obstructive pulmonary disease with (acute) exacerbation; D75.1 Secondary polycythemia; I50.23 Acute on chronic systolic (congestive) heart failure; I25.2 Old myocardial infarction; I25.5 Ischemic cardiomyopathy; E78.5 Hyperlipidemia, unspecified; G47.33 Obstructive sleep apnea (adult) (pediatric); F17.210 Nicotine dependence, cigarettes, uncomplicated; E66.9 Obesity, unspecified; D75.89 Other specified diseases of blood and blood-forming organs; I25.10 Atherosclerotic heart disease of native coronary artery without angina pectoris; Z82.49 Family history of ischemic heart disease and other diseases of the circulatory system
CPT/HCPCS: 36415; 36600; 71010; 80048; 80061; 80076; 80307; 81003; 81270; 82553; 82607; 82668; 82746; 82803; 82947; 83036; 83735; 83880; 84165; 84300; 84443; 84484; 85025; 85027; 85379; 85610; 85730; 88182; 88184; 88185; 93005; 93306; 94640; 94664; 94760; 96374; 96375; 99285; C1769; C1887; C1894; G0480; J1644; J1650; J1815; J1940; J1956; J2250; J2270; J2920; J2930; J3010; J3420

== ENCOUNTER 2016-10-04 16:26 | Emergency (ER) | payer OTHER ==
--- NOTE | ~2016-10-04 | EKG ---
PATIENT: PAULO MELISSA UNIT #: [id number] Ventricular Rate: 103 BPM Atrial Rate: 103 BPM P-R Interval: 154 ms QRS Duration: 100 ms Q-T Interval: 386 ms QTC Calculation(Bezet): 505 ms P [place]: 39 degrees Calculated R [place]: -74 degrees Calculated T [place]: 10 degrees Diagnosis Line: Sinus tachycardia Diagnosis Line: Left atrial enlargement Diagnosis Line: Left anterior fascicular block Diagnosis Line: Poor R wave progression questionable lead position Diagnosis Line: or body habitus Diagnosis Line: Abnormal ECG Diagnosis Line: When compared with ECG of 13-SEP-2016 17:19, Diagnosis Line: Left anterior fascicular block is now Present Diagnosis Line: T wave inversion no longer evident in Inferior Diagnosis Line: leads Diagnosis Line: T wave amplitude has increased in Anterior leads Diagnosis Line: QT has lengthened Diagnosis Line: Confirmed by LISSET MOELLER MD ([id number]) on 10/06/2016 Diagnosis Line: 9:15:24 AM INTERPRETING MD: SUNNI MIRANDA
--- NOTE | ~2016-10-04 | CR72 ---
[facility] A Service of [facility] & [facility] RADIOLOGY TEXT RESULTS PATIENT: PAULO MELISSA LOCATION: [facility] : 65 UNIT #: [id number] AGE: [address]: Rene Alvarado MD SEX: M ORDER DR: [id number] [facility] [address] [place], [place] [address] [id number] E MR#: [id number] Acc #: [id number] NAME: PAULO MELISSA. : 1965 SEX: M STUDY DATE/TIME: 10/04/2016 16:27 UNIT: [facility] ROOM: STUDY DESCRIPTION: CR Chest Single View Portable Attending Physician: Rene Alvarado M.D. Ordering Physician: Cydney Rice M.D. Primary Care Physician: No Primary Care Physician MEDICAL IMAGING REPORT This report is preliminary unless electronic signature is present EXAM Portable chest INDICATIONS 51-year-old male with cough, shortness of breath for 2 weeks. COMPARISON 09/09/2016 FINDINGS Cardiomegaly. Stable interstitial and bronchial wall thickening. No acute infiltrate. IMPRESSION Stable cardiomegaly and interstitial thickening. No acute infiltrate. Dictated by... Dada Pichardo M.D. THIS IS AN ELECTRONICALLY VERIFIED REPORT Dada Pichardo M.D. at 10/05/2016 11:32 AM ARS/shubham TD: 10/05/2016 08:31 JOB #: [id number] MEDICAL IMAGING REPORT Page 1 of 1 COPY
--- NOTE | ~2016-10-04 | CT2 ---
[facility] A Service of [facility] & [facility] RADIOLOGY TEXT RESULTS PATIENT: PAULO MELISSA LOCATION: [facility] : 65 UNIT #: [id number] AGE: [address]: Rene Alvarado MD SEX: M ORDER DR: [id number] [facility] [address] [place], [place] [address] [id number] E MR#: [id number] Acc #: [id number] NAME: PAULO MELISSA. : 1965 SEX: M STUDY DATE/TIME: 10/04/2016 18:42 UNIT: [facility] ROOM: STUDY DESCRIPTION: CT Abd and Pelv W Cont Attending Physician: Rene Alvarado M.D. Ordering Physician: Cydney Rice M.D. Primary Care Physician: Primary Care Physician No MEDICAL IMAGING REPORT This report is preliminary unless electronic signature is present EXAM CT of the abdomen and pelvis with IV contrast HISTORY Vomiting today. TECHNIQUE This CT exam was performed with one or more of the following radiation dose reduction techniques: automatic exposure control, adjustment of mA and/or kV according to patient size, and iterative reconstruction. FINDINGS CT of the abdomen and pelvis was performed with IV contrast. CT ABDOMEN: Mild multi-chamber cardiac enlargement. Diffuse fatty infiltration of the liver. Incidental tiny subcentimeter cyst in the left hepatic dome. Remainder of the liver is unremarkable. Gallbladder, spleen, pancreas, kidneys and adrenal glands are normal. Normal caliber abdominal aorta. No bowel dilatation. CT PELVIS: Normal appendix. Umbilical hernia containing fat measuring 4.0 cm x 4.7 cm in AP and transverse dimensions and 5.4 cm in craniocaudal dimension, protruding through a defect measuring 1.2 cm in transverse diameter. There is a left inguinal hernia containing fat and a short segment of non-obstructed colon at the junction of the descending and proximal sigmoid colon. The hernia also contains fat measuring 4.2 cm x 4.4 cm in maximal AP and transverse dimensions. No associated bowel obstruction. No pelvic free fluid or inflammatory stranding. Urinary bladder is normal. Prostate gland is unremarkable. IMPRESSION 1. Left inguinal hernia containing fat and a short segment of STS. [facility] A Service of [facility] & [facility] RADIOLOGY TEXT RESULTS PATIENT: PAULO MELISSA LOCATION: [facility] : [birth year] UNIT #: [id number] AGE: [address]: Rene Alvarado MD SEX: M ORDER DR: non-obstructed colon at the junction of the distal descending and proximal sigmoid colon. No bowel dilatation. 2. No free fluid or inflammatory stranding. 3. Fatty infiltration of the liver. 4. Umbilical hernia measuring 5.4 cm in maximal dimension. The hernia contains fat and does not contain bowel. 5. Normal appendix. Dictated by... Cedric Holder M.D. THIS IS AN ELECTRONICALLY VERIFIED REPORT Cedric Holder M.D. at 10/05/2016 9:04 PM Markell TD: 10/05/2016 11:12 JOB #: [id number] MEDICAL IMAGING REPORT Page 1 of 1 COPY
[~2016-10-04 16:26] MED LIST changes: +ALDACTONE25 MG PO; +ASPIRIN81 MG PO; +COREG6.25 M1 PO; +FUROSEMIDE40 MG PO; +LIPITOR80 MG PO; +NITROSTAT0.4 MG SL; +STERAPRED5 MG/DOSE1 PO; +SYMBICORT INH; +VIBRAMYCIN100 M1 PO; +ZESTRIL5 MG PO
[2016-10-04 16:35] LABS: BASOPHIL% 0.4 % (0-2.5); EOSINOPHIL% 0.1 % (0.0-7.0); HEMOGLOBIN 16.2 gm/dL (13.0-16.0); LYMPHOCYTE# 2.7 X10e3 (1.0-3.5); LYMPHOCYTE% 39.8 % (17.0-45.0); MEAN CELL VOLUME 106.9 FL (83-96); MEAN CORPUSCULAR HGB CONC 33.7 g/dL (30-36); MEAN PLATELET VOLUME 7.4 FL (6.5-11.5); MONOCYTE# 0.4 X10e3 (0-1.0); MONOCYTE% 6.2 % (3.0-12.0); NEUTROPHIL# 3.7 X10e3 (1.5-7.1); NEUTROPHIL% 53.5 % (40-75); PLATELET COUNT 264 X10e3 (140-420); RED BLOOD COUNT 4.48 X10e (3.90-5.60); WHITE BLOOD COUNT 6.8 X10e3 (4.0-10.5)
[2016-10-04 16:37] LABS: DIFF IND YES
[2016-10-04 16:43] LABS: POC - CKMB 2.3 ng/mL (0.0-7.9); POC - TROPONIN <0.05 ng/mL (<=0.05)
[2016-10-04 16:45] LABS: INFLUENZA A NEG (NEG); INFLUENZA B NEG (NEG)
[2016-10-04 16:50] LABS: URINE SOURCE CLEAN CATCH
[2016-10-04 16:58] LABS: URINE APPEARANCE CLEAR; URINE BILIRUBIN NEG (NEG); URINE BLOOD NEG (NEG); URINE COLOR YELLOW; URINE GLUCOSE NEG (NEG); URINE KETONE NEG (NEG); URINE LEUKOCYTE ESTERASE NEG (NEG); URINE NITRATE NEG (NEG); URINE PROTEIN NEG (NEG); URINE SPECIFIC GRAVITY 1.006 (1.003-1.035)
[2016-10-04 17:00] LABS: ANISOCYTOSIS SL; PLATELET ESTIMATE NORMAL (NORMAL)
[2016-10-04 17:06] LABS: CULTURE INDICATED? NO
[2016-10-04 17:08] LABS: AMPHETAMINE NEG (NEG); BARBITURATES NEG (NEG); BENZODIAZEPINES NEG (NEG); COCAINE NEG (NEG); MARIJUANA NEG (NEG); OPIATES NEG (NEG); TRICYCLIC ANTIDEPRESSANTS NEG (NEG); U METHADONE NEG (NEG)
[2016-10-04 17:18] LABS: ALBUMIN SERUM 4.1 g/dL (3.5-5.0); ALKALINE PHOSPHATASE 48 U/L (32-92); ALT (SGPT) 50 U/L (10-40); AST (SGOT) 44 U/L (10-42); BILIRUBIN, DIRECT 0.2 mg/dL (0.0-0.2); BILIRUBIN,INDIRECT 0.7 mg/dL (0.0-0.9); BILIRUBIN,TOTAL 0.9 mg/dL (0.2-2.0); BLOOD UREA NITROGEN 9 mg/dL (9-23); BUN/CREATININE RATIO 8.18; CALCIUM SERUM 8.4 mg/dL (8.4-10.2); CARBON DIOXIDE 26 mmol/L (22-31); CHLORIDE 102 mmol/L (100-111); CPK (CREATINE PHOSPHOKINASE) 104 IU/L (36-174); CREATININE SERUM 1.1 mg/dL (0.6-1.4); GLOM FILT RATE Estimated ABOVE60 mL/min (>60); GLUCOSE FASTING 98 mg/dL (70-110); LIPASE 30 U/L (22-51); POTASSIUM 3.9 mmol/L (3.5-5.1); PROTEIN TOTAL SERUM 7.4 g/dL (6.0-8.3); SODIUM 142 mmol/L (135-145)
[2016-10-04 17:20] LABS: ALCOHOL BLOOD 434 mg/dL (0)
== END 2016-10-05 | disposition home or self-care (01) ==
LOC: CED 16:26
PROVIDERS: Emergency Medicine
DX: J44.1 Chronic obstructive pulmonary disease with (acute) exacerbation (principal); F10.129 Alcohol abuse with intoxication, unspecified; E78.5 Hyperlipidemia, unspecified; J44.9 Chronic obstructive pulmonary disease, unspecified; G89.29 Other chronic pain; M54.9 Dorsalgia, unspecified; G40.909 Epilepsy, unspecified, not intractable, without status epilepticus; F17.210 Nicotine dependence, cigarettes, uncomplicated
CPT/HCPCS: 36415; 71010; 74177; 80048; 80076; 80307; 81003; 82550; 82553; 83605; 83690; 84484; 85025; 87804; 93005; 96374; 99284; G0480; J2405; Q9967

== ENCOUNTER 2016-12-26 08:52 | Inpatient (IN) | payer OTHER ==
--- NOTE | ~2016-12-26 | CO ---
Unit #: [id number] #: [id number] Patient: RICHI MELISSA [id number] [facility] [address] [place], [place] [address] [id number] I MR#: [id number] NAME: RICHI MELISSA. ROOM: 327 Age: 51 Sex: M Admission Date: 12/26/2016 : 1965 Attending Physician: Marychuy Baker M.D. Primary Care Physician: [facility] Cesario Consultation Date: 12/30/2016 CONSULTATION REPORT REASON FOR CONSULTATION Followup. DISCUSSION Mr. Richi Melissa is a 51-year-old white male, seen in room 327, bed 1 on 12/30/2016. The patient has a history of depression and anxiety, history of alcohol abuse. The patient was yesterday started on Celexa, Zyprexa, Vistaril, also on Librium. The patient was transferred from ICU to room 327, bed 1. The patient was seen at [facility]. The patient was pleasant and cooperative. Reports that he is still having problem with the anxiety, but feeling better. The patient denied any thoughts of harming self or others. Denied any psychotic symptom. The patient's vital signs are temperature 97.8, pulse 82, respirations 19, blood pressure 90/57, oxygen saturation 95%. REVIEW OF SYSTEMS Complete review of systems unremarkable except as mentioned above. MENTAL STATUS EXAMINATION General appearance, the patient dressed casually in hospital attire, somewhat anxious, nervous. Attention span and concentration, fair. Speech, regular rate and coherent. Oriented in time, place, and person. Mood and affect, sad and dysphoric. Thought process, coherent. Thought content, the patient denied any thoughts of harming self or others or any psychotic symptom. Recent and remote memory, fair. Language, intact. Fund of knowledge, fair. Insight and judgment, fair to slightly impaired. DIAGNOSES Psychiatric: Alcohol use disorder, severe, F10.20; major depressive disorder, recurrent, severe, F33.2; anxiety disorder, not otherwise specified, F40.01. ASSESSMENT/PLAN 1. Supportive psychotherapy and psychoeducation provided to the patient. 2. Educated about benefits and side effects of medication and course and prognosis of illness. 3. Advised to continue with current medication and advised the patient to [facility]. The patient was given crisis line #[phone]. Please feel free to call if any questions, telephone #[phone]. Dictated by... Yosef Trotter M.D. Unit #: [id number] #: [id number] Patient: SHINRICHI Arreaga Ayleen RUIZ/hans TD: 12/31/2016 18:14 JOB #: [id number] CONSULTATION REPORT Page 1 of 1 X Yosef Trotter MD X CONSULTATION REPORT
--- NOTE | ~2016-12-26 | HP ---
Unit #: [id number] #: [id number] Patient: PAULO MELISSA [id number] [facility] [address] [facility]. [place], [place] [address] [id number] I MR#: [id number] NAME: PAULO MELISSA. ROOM: 303 Age: 51 Sex: M Admission Date: 12/26/2016 : 1965 Attending Physician: Fred Aguilar M.D. Primary Care Physician: [facility]. HISTORY AND PHYSICAL DIAGNOSIS ON ADMISSION Alcohol intoxication. HISTORY OF PRESENT ILLNESS A 51-year-old male presented to [facility] with shortness of air. As per patient, he was in his usual state of health when he developed shortness of breath two days ago. Patient stated that he was not feeling well over the last two to three days, and his shortness of air progressively worsened to a degree that today he was not able to walk a few steps without shortness of breath. He stated that he is drinking a few beers every day but does not quantify. Patient denies having chest pain, tightness, or heaviness. He is complaining of leg swelling. He denies having any cough, fever, or sputum. He denies recent weight loss but feels like he may have gained a few pounds. He denies headache or visual problems. The rest of the review of systems was negative. Patient is not an ideal historian because he is very restless and agitated. PAST MEDICAL HISTORY 1. Patient was recently discharged from [facility] when he was admitted September 10-2016, and treated for COPD and CHF. 2. Congestive heart failure with ejection fraction of 15%. 3. Polycythemia. 4. Obstructive sleep apnea syndrome. 5. Chronic alcohol abuse. 6. Macrocytosis. 7. Coronary artery disease with history of [place] x3, status post cardiac stents in 2004, 2007, and 2009. 8. Tobacco abuse. 9. Hypertension. 10. Hyperlipidemia. 11. Chronic low back pain. PAST SURGICAL HISTORY Cardiac stenting. ALLERGIES No known drug allergies. HOME MEDICATIONS 1. Symbicort 80/4.5 mcg per inhalation daily. 2. Coreg 6.25 mg p.o. b.i.d. 3. Lasix 40 mg p.o. daily. Unit #: [id number] #: [id number] Patient: PAULO MELISSA 4. Lipitor 80 mg at bedtime. 5. Lisinopril 5 mg daily. 6. Aldactone 25 mg daily. 7. Nitroglycerin as needed for chest pain. 8. Ventolin. SOCIAL HISTORY Patient smokes a few cigarettes per day and drinks a few beers every day as per patient, but he will not quantify amount. He denies use of illicit drugs. FAMILY HISTORY Coronary artery disease and CHF. PHYSICAL EXAMINATION GENERAL: Patient is lying comfortably in bed and is not in any obvious acute distress. VITAL SIGNS: Temperature of 97.8, pulse 90 per minute, respiratory rate 18 per minute, and blood pressure is 116/81. HEENT: No conjunctival congestion. Sclerae are nonicteric. NECK: Supple. Trachea is central. RESPIRATORY: Decreased breath sounds bilaterally. No wheezes or crackles. HEART: Regular rate and rhythm, S1 and S2. ABDOMEN: Soft and nontender. Bowel sounds are present in all four quadrants. EXTREMITIES: No pedal edema. SKIN: Warm and dry. PSYCHIATRIC: Patient is very restless and agitated. DIAGNOSTIC STUDIES LABORATORY ON ADMISSION: Creatinine 0.7, sodium 139, potassium 4.4, AST 113, and ALT is 104. Serum alcohol level was 453. WBC 4.5, hemoglobin 17.2, and platelet count is 71,000. IMAGING: Chest x-ray reveals stable moderate cardiomegaly. Lungs are clear. CARDIOLOGY: EKG reveals sinus tachycardia with heart rate of 104 per minute. There is decreased R wave progression in the anterior chest leads. ASSESSMENT AND PLAN A 51-year-old male presented to [facility] with alcohol intoxication. Patient's troponin was 0.05. 1. Alcohol intoxication. We have started patient on CIWA protocol. 2. Congestive heart failure. It is compensated currently. Will continue patient's diuretics. 3. History of coronary artery disease. Will do serial cardiac enzymes q.6 x2. 4. Hyperlipidemia. Will hold on patient's Lipitor because of elevated liver function tests. 5. Hypertension. Will continue lisinopril and Coreg. 6. Chronic obstructive pulmonary disease. Will start patient on DuoNeb mini-neb treatments. 7. Thrombocytopenia secondary to alcohol abuse. 8. Patient's overall prognosis is very poor. 1. Unit #: [id number] #: [id number] Patient: PAULO MELISSA Dictated by Bianca Cruz TD: 12/26/2016 17:26 JOB #: [id number] HISTORY AND PHYSICAL Page 1 of 1 X Colby Guerra MD X HISTORY AND PHYSICAL
--- NOTE | ~2016-12-26 | CO ---
Unit #: [id number] #: [id number] Patient: RICHI MELISSA [id number] [facility] [address] [facility]. [place], [place] [address] [id number] I MR#: [id number] NAME: RICHI MELISSA. ROOM: 327 Age: 51 Sex: M Admission Date: 12/26/2016 : 1965 Attending Physician: Marychuy Baker M.D. Primary Care Physician: [facility] Consultation Date: 12/29/2016 CONSULTATION REPORT REASON FOR CONSULTATION Depression, anxiety, alcohol abuse. HISTORY OF PRESENT ILLNESS Mr. Richi Melissa is a 51-year-old white male, seen in CCU-2, bed 11 on 12/29/2016 at [facility]. The patient was dressed in hospital attire, lying comfortably in bed, receiving oxygen through nasal cannula, has an IV. The patient seemed somewhat anxious, nervous, sad, and depressed. The patient reports that he is having panic attack, seems that the room is closing on him. The patient reports that he has a history of depression, anxiety, and was treating his depression by using alcohol. The patient was admitted in alcohol intoxication. The patient currently denied any thoughts of harming self or others or any psychotic symptom, but reported feeling sad, depressed, feeling of hopelessness, worthlessness, severe anxiety, and panic attack. PAST PSYCHIATRIC HISTORY Unremarkable for any prior treatment, history of depression, anxiety, and alcohol abuse. MEDICAL HISTORY The patient diagnosed with COPD; congestive heart failure with an ejection fraction 15%; polycythemia; obstructive sleep apnea syndrome; chronic alcohol abuse; macrocytosis; coronary artery disease with a history of NE x3, cardiac stent in 2004, 2007, 2009; tobacco use; hypertension; hyperlipidemia; chronic pain. ALLERGIES No known drug allergies. MEDICATIONS The patient is on Symbicort, Coreg, Lasix, Lipitor, lisinopril, Aldactone, nitroglycerin, and Ventolin. FAMILY HISTORY AND SOCIAL HISTORY The patient reports that he lives by himself, poor support system. Reports drinking on almost on a daily basis. Denied any use of any illicit drugs. No history of abuse. REVIEW OF SYSTEMS Complete review of systems is unremarkable. MENTAL STATUS EXAMINATION The patient's vital signs; temperature 97.9, pulse 82, respiratory rate Unit #: [id number] #: [id number] Patient: SHINRICHI 18, and blood pressure 112/80, and oxygen saturation 94%. General appearance; the patient dressed in hospital attire, lying comfortably in bed, and seemed anxious, nervous, sad, depressed. Attention span and concentration, fair. Speech; regular rate and coherent. Oriented in time, place, and person. Mood and affect, sad and depressed. Thought process, coherent. Thought content, the patient denied any thoughts of harming self or others, but guarded and somewhat paranoid. Recent and remote memory, fair. Language, intact. Fund of knowledge, fair. Insight and judgment, fair to slightly impaired. DIAGNOSES Psychiatric: Major depressive disorder, recurrent, severe, F33.2; alcohol use disorder, severe, F10.20; agoraphobia with panic disorder, F40.01. Secondary diagnosis: Deferred. Medical diagnosis: Please refer to H and P. Stressors: Psychosocial stressors. ASSESSMENT/PLAN 1. Supportive psychotherapy and psychoeducation provided to the patient. 2. Educated about benefits and side effects of medication and course and prognosis of illness. 3. Advised to give Vistaril 50 mg and Zyprexa 5 mg, now dose. Advised Vistaril 50 mg t.i.d. for anxiety, Zyprexa 5 mg b.i.d. for mood stabilization, Celexa 20 mg daily for depression. We will continue to follow. If needed, consider further adjustment of medication. The patient advised to follow up at [facility] program upon discharge at [facility] program. Please feel free to call if any questions, telephone #[phone]. Dictated by... Bianca Granados/hans TD: 12/30/2016 23:01 JOB #: [id number] CONSULTATION REPORT Page 1 of 1 X Yosef Trotter MD CONSULTATION REPORT
--- NOTE | ~2016-12-26 | CO ---
Unit #: [id number] #: [id number] Patient: PAULO MELISSA [id number] [address] [place], [place] [address] [id number] I MR#: [id number] NAME: PAULO MELISSA. ROOM: [facility] Age: 51 Sex: M Admission Date: 12/26/2016 : 1965 Attending Physician: Marychuy Baker M.D. Primary Care Physician: [facility]. CONSULTATION REPORT CHIEF COMPLAINT Gross hematuria. HISTORY OF PRESENT ILLNESS This is a 51-year-old man admitted to the hospital with shortness of breath, alcohol intoxication, and going through DTs. Ramos catheter was placed. We were consulted because there is gross hematuria. Patient reports having seen blood in his urine in the past. He reports having discomfort in his pelvic area and penis since the catheter has been placed. He reports that discomfort is relatively constant. It is a little bit better now. He did not admit to pulling the catheter. He has no nausea and no vomiting. PAST MEDICAL HISTORY Congestive heart failure; polycythemia; previous admission for COPD, CHF, as well as alcohol intoxication; sleep apnea; macrocytosis; coronary artery disease; tobacco abuse; hypertension; chronic back pain; hyperlipidemia; and coronary stent. ALLERGIES No known drug allergies. MEDICATIONS 1. Symbicort. 2. Coreg. 3. Lasix. 4. Lipitor. 5. Lisinopril. 6. Aldactone. 7. Nitroglycerin as needed. 8. Ventolin. SOCIAL HISTORY Positive for smoking and positive for alcohol. FAMILY HISTORY Negative for any urologic problems. REVIEW OF SYSTEMS Negative for 10 points, except for discomfort associated with his catheter in the penis. EXAM VITAL SIGNS: He is afebrile. Vital signs stable. Unit #: [id number] #: [id number] Patient: PAULO MELISSA NECK: Supple. Trachea is midline. GENERAL APPEARANCE: No acute distress. Somewhat obese gentleman. PULMONARY: Exam is benign. HEART: Exam was benign. ABDOMEN: Soft. No rebound. No guarding. He has got an umbilical hernia that is palpable. There is some bruising on the skin. I did not reduce it. I attempted to reduce it. Patient had a little bit of discomfort when I tried to reduce it. GENITOURINARY: Normal external genitalia. Ramos catheter in place. Urine in the catheter is pink-tinged. EXTREMITIES: No clubbing, cyanosis, or edema. PSYCHIATRIC: Patient is a little bit restless. DIAGNOSTIC STUDIES LABORATORY: Creatinine 0.7. No recent urinalysis. White blood cell count 4.5. ASSESSMENT Hematuria and umbilical hernia. We will obtain [facility] consultation. Also, order UA and culture and sensitivity. Continue Ramos catheter drainage. Eventual outpatient cystoscopy. Patient had a CT scan in September that showed no urologic pathology. It did show umbilical and inguinal hernias. Thank you for the kind referral. Will follow along with you. Dictated by... John Ruiz M.D. TROY/shubham TD: 12/28/2016 11:25 JOB #: [id number] CONSULTATION REPORT Page 1 of 1 X John Ruiz MD X CONSULTATION REPORT
--- NOTE | ~2016-12-26 | EKG ---
PATIENT: PAULO MELISSA UNIT #: [id number] Ventricular Rate: 71 BPM Atrial Rate: 71 BPM P-R Interval: 168 ms QRS Duration: 112 ms Q-T Interval: 502 ms QTC Calculation(Bezet): 545 ms P [place]: 43 degrees Calculated R [place]: -45 degrees Calculated T [place]: 7 degrees Diagnosis Line: Normal sinus rhythm Diagnosis Line: Biatrial enlargement Diagnosis Line: Left anterior fascicular block Diagnosis Line: Lateral infarct (cited on or before 28-DEC-2016) Diagnosis Line: T wave abnormality, consider anterior ischemia Diagnosis Line: Prolonged QT Diagnosis Line: Abnormal ECG Diagnosis Line: When compared with ECG of 26-DEC-2016 09:12, Diagnosis Line: Serial changes of evolving Lateral infarct Present Diagnosis Line: Confirmed by SANDRA BLACK MD ([id number]) on 12/28/2016 Diagnosis Line: 7:48:15 AM INTERPRETING MD: SOFIA MIRANDA
--- NOTE | ~2016-12-26 | CO ---
Unit #: [id number] #: [id number] Patient: PAULO MELISSA [id number] [facility]. [place], [place] [address] [id number] I MR#: [id number] NAME: PAULO MELISSA. ROOM: [facility] Age: 51 Sex: M Admission Date: 12/26/2016 : 1965 Attending Physician: Marychuy Baker M.D. Primary Care Physician: [facility]. Requesting Physician: John Ruiz M.D. Consultation Date: 12/28/2016 CONSULTATION REPORT REASON FOR CONSULTATION Umbilical hernia. HISTORY OF PRESENT ILLNESS Thank you very much for asking us to see Mr. Melissa. He is a 51-year-old white male who was admitted to [facility] on 12/26/2016 with shortness of breath. He was found to have an elevated alcohol level. He has been improving in the intensive care unit. However, he was noted to have an umbilical hernia with some purplish discoloration of the overlying skin. The patient states he has had no nausea or vomiting. No GI bleeding. He states he has had this hernia for six months or so. He presented for further evaluation and treatment. PAST MEDICAL HISTORY 1. Chronic obstructive pulmonary disease. 2. Congestive heart failure. 3. Polycythemia. 4. Chronic alcohol abuse. 5. Coronary artery disease. 6. Tobacco use. 7. Hypertension. 8. Hyperlipidemia. 9. Chronic back pain. PAST SURGICAL HISTORY Cardiac stent. SOCIAL HISTORY Positive for tobacco and alcohol use. FAMILY HISTORY Noncontributory. IMMUNIZATIONS Status unknown. ALLERGIES No known drug allergies. CURRENT MEDICATIONS Please see medication reconciliation sheet. REVIEW OF SYSTEMS Negative except for above. Unit #: [id number] #: [id number] Patient: PAULO MELISSA PHYSICAL EXAMINATION GENERAL: Well-developed, well-nourished white male in no apparent distress. Awake, alert. VITALS: Temperature 99, pulse 69, respiratory rate 18, blood pressure 124/88. HEENT: Sclerae nonicteric. Extraocular movements are intact. NECK: Supple. No thyromegaly or adenopathy. BACK: No CVA or spinous tenderness. ABDOMEN: Somewhat protuberant, but flat, soft, nontender. The patient has an obvious umbilical hernia. It is incarcerated, most likely with omentum. There is some purplish discoloration due to the thinning of the skin, but there is no evidence of ischemia or necrosis. : The patient has a reducible left inguinal hernia. EXTREMITIES: No calf tenderness. DIAGNOSTIC STUDIES LABORATORY: The patient has a CMP a that shows a glucose of 170, BUN 14, creatinine 0.7 and normal electrolytes, with liver function studies of total bilirubin 2.8, indirect 2.3, AST 70, ALT 78. PT/PTT 11.4. Hemoglobin 16.7, hematocrit 49.1, white blood cell count 6.1, platelet count 49,000. ASSESSMENT/PLAN The patient is a 51-year-old white male with chronic alcohol abuse and shortness of breath. He has an incarcerated umbilical hernia with some thinning of the skin, but it is viable. He has a reducible left inguinal hernia. These were both noted on CT scan in September of this year. We have explained that he needs to have these repaired at some point. However, at this time, since he has some pulmonary difficulties, it is not optimal. After these have improved this can be done electively. Thank you very much for this consultation. We appreciate it. Dictated by... Jomar Swanson M.D. BELKYS/carl TD: 12/28/2016 11:43 JOB #: [id number] CC: [facility] Bianca Acevedo M.D. CONSULTATION REPORT Page 1 of 1 X Jomar Swanson MD X CONSULTATION REPORT
--- NOTE | ~2016-12-26 | DS ---
Unit #: [id number] #: [id number] Patient: PAULO MELISSA [id number] [address] [place], [place] [address] [id number] I MR#: [id number] NAME: PAULO MELISSA. ROOM: 327 Age: 51 Sex: M Admission Date: 12/26/2016 : 1965 Discharge Date: 12/30/2016 Attending Physician: Marychuy Baker M.D. Primary Care Physician: [facility]. DISCHARGE SUMMARY PRINCIPAL DIAGNOSES 1. Acute delirium tremens. 2. Acute hypoxic respiratory failure secondary to #3. 3. Acute exacerbation of chronic obstructive pulmonary disease. 4. Chronic systolic congestive heart failure with ejection fraction of 15%. This is likely a combination of ischemic and alcohol-induced. 5. Acute alcohol intoxication. 6. Alcohol dependence. 7. Mild vitamin B12 deficiency. 8. Obstructive sleep apnea, not treated. 9. Transaminitis secondary to chronic alcohol abuse. 10. Chronic thrombocytopenia secondary to alcohol abuse. 11. Coronary artery disease. 12. Leukopenia secondary to chronic alcohol abuse, now resolved. 13. Insulin resistance. 14. Tobaccoism. 15. Obesity. 16. Severe anxiety with depression. 17. Chronic back pain. 18. Chronic polycythemia secondary to untreated obstructive sleep apnea. CONSULTANTS 1. Dr. David Lee - Pulmonology. 2. Dr. Lor Freeman - Cardiology. 3. Dr. Trotter - Psychiatry. PROCEDURES Chest x-ray on December 26, 2016, with cardiomegaly and tortuous aorta. Lungs were otherwise clear. CLINICAL HISTORY/HOSPITAL COURSE Mr. Melissa is a 51-year-old male who presents to the emergency department with shortness of breath. Please refer to H and P for further details. In the emergency department, the patient was found to be mildly hypoxic and chest x-ray did not reveal any abnormality. In the ER, he was also found to have significant alcohol intoxication with an alcohol level of 453. The patient was subsequently admitted. The patient was started on oxygen and IV steroids. He was placed on CIWA protocol due to his significant alcohol level. Unfortunately, the night he was admitted, patient became increasingly agitated and was transferred to the ICU and placed on high dose CIWA protocol at which time pulmonology was consulted. The patient was also having complaints of chest pain and cardiology was subsequently consulted. Unit #: [id number] #: [id number] Patient: PAULO MELISSA In regards to his alcohol withdrawal, he was placed on scheduled Librium and, fortunately, his symptoms significantly improved and his Librium has now been tapered. The patient does use alcohol to treat his underlying anxiety and depression. For this reason, Dr. Trotter was consulted. The patient has been placed on medications for these conditions, as noted below, and will be discharged home. The patient's respiratory status improved with treatment of his alcohol. He has been transitioned to oral steroids and has no evidence of hypoxia now. In regards to patient's complaints of chest pain, serial troponins were negative. He has known coronary stenosis but, given he has not been compliant with cessation of alcohol, the stents have not been addressed. He will follow up with Dr. Ramirez as an outpatient. No evidence of ID. The patient will be discharged home later today. DISCHARGE CONDITION Stable. DISCHARGE STATUS Discharge to home. DISCHARGE MEDICATIONS 1. Ventolin inhaler, two puffs every four hours p.r.n. for shortness of breath. 2. Symbicort 160/4.5 mcg, two puffs b.i.d. 3. Prednisone 10 mg tablets, three tablets for three days, then two tablets for three days, then one tablet for three days, then discontinue. 4. Celexa 20 mg at bedtime with one refill. 5. Lipitor 80 mg daily. 6. BuSpar 7.5 mg b.i.d. with one refill. 7. Vistaril 50 mg p.o. t.i.d. with one refill. 8. Librium 25 mg, one b.i.d. for one day, then one daily for one day, then discontinue. 9. Coreg 6.25 mg b.i.d. 10. Lasix 40 mg b.i.d. 11. Lisinopril 5 mg daily. 12. Aspirin 81 mg daily. 13. Spironolactone 25 mg daily. 14. Zyprexa 5 mg p.o. b.i.d. with one refill. 15. Nitroglycerin 0.4 mg sublingual q.5 minutes p.r.n. for chest pain. 16. Vitamin B12 1000 mcg p.o. daily. DISCHARGE INSTRUCTIONS The patient was instructed to refrain from any further alcohol or tobacco use. He can increase his activity as tolerated. FOLLOWUP The patient will follow up with Dr. David Lee in two weeks. He needs outpatient polysomnography arranged. The patient will follow up with Dr. Ramirez on February 17 at 3 p.m. The patient will follow up with his primary care provider at [facility] in four weeks. The patient should follow up with outpatient psychiatric care at [facility]. He was released from work for days of hospitalization and has been returned Unit #: [id number] #: [id number] Patient: PAULO MELISSA without restriction when Librium complete. Time spent on discharge - 43 minutes. ADDITIONAL JOB # [id number] Dictated by... Marychuy Baker M.D. MELANIE/ann marie TD: 01/02/2017 09:05 JOB #: [id number] DISCHARGE SUMMARY Page 1 of 1 X Marychuy Baker MD X DISCHARGE SUMMARY
--- NOTE | ~2016-12-26 | CR72 ---
[facility] A Service of [facility] RADIOLOGY TEXT RESULTS PATIENT: PAULO MELISSA LOCATION: [facility] 303-01 : [birth year] UNIT #: [id number] AGE: [address]: MARITZA SIEGEL MD SEX: M ORDER DR: [id number] [facility] [address] [facility]. [place], [place] [address] [id number] I MR#: [id number] Acc #: [id number] NAME: PAULO MELISSA. : 1965 SEX: M STUDY DATE/TIME: 12/26/2016 09:30 UNIT: CEDOF ROOM: 03229 STUDY DESCRIPTION: CR Chest Single View Portable Attending Physician: Maritza Siegel M.D. Ordering Physician: Ed Doctor [id number] [facility] Primary Care Physician: [facility] MEDICAL IMAGING REPORT This report is preliminary unless electronic signature is present EXAM Chest portable 12/26/2016 09:30 hours HISTORY 51-year-old man complaining of 4-5 day history of increasing shortness of air. Patient stopped taking all of his medications. History of COPD, coronary artery disease with coronary stents, seizures. COMPARISON 10/04/2016 FINDINGS Portable upright chest demonstrates moderate cardiomegaly similar to 10/04/2016. Stable tortuous aorta. Pulmonary vascularity is normal. There is no definite edema, pneumonia or effusion. IMPRESSION Stable moderate cardiomegaly, tortuous aorta. The lungs are clear and there are no effusions. Dictated by... Daisha Wall M.D. THIS IS AN ELECTRONICALLY VERIFIED REPORT Daisha Wall M.D. at 12/26/2016 7:31 PM [place] TD: 12/26/2016 11:53 JOB #: [id number] MEDICAL IMAGING REPORT Page 1 of 1 COPY
--- NOTE | ~2016-12-26 | CO ---
Unit #: [id number] #: [id number] Patient: PAULO MELISSA [id number] [address] [place], [place] [address] [id number] I MR#: [id number] NAME: PAULO MELISSA. ROOM: [facility] Age: 51 Sex: M Admission Date: 12/26/2016 : 1965 Attending Physician: Marychuy Baker M.D. Primary Care Physician: [facility]. CONSULTATION REPORT Mr. eMlissa is a 51-year-old white male who we have seen in the hospital for COPD and likely obstructive sleep apnea. He had PFTs done in our office which apparently revealed evidence of air trapping. He has been scheduled to have PSG for evaluation of YADIRA but has cancelled or no-showed for his sleep studies. Apparently, he does continue to drink alcohol heavily and, according to nursing staff, he is on a CPAP of his brother's. He is not able to give much history now as he is on CIWA protocol and has been given sedation. Apparently, he had developed shortness of breath over the last couple of days, not feeling well for that period of time. He says he has been drinking a few beers a day. He apparently denied chest pain to Dr. Guerra but in Dr. Freeman's note there was some history of chest pain. There has been no history of cough or fever or purulent sputum. On exam, he was admitted. There was no wheezing noted. Upon admission, his alcohol level was between 400 and 500. He was started on a CIWA protocol. We were asked to see as he has been moved to the Intensive Care Unit. PAST MEDICAL HISTORY Significant for: 1. Some degree of COPD. 2. Ischemic cardiomyopathy, ejection fraction of 15%. 3. Polycythemia. 4. Likely obstructive sleep apnea. 5. Alcohol abuse. 6. Tobacco abuse. 7. Coronary artery disease, status post stents. 8. Hypertension. 9. Hyperlipidemia. 10. Chronic back pain. SURGERY Cardiac stenting. ALLERGIES None known. MEDICATIONS 1. Symbicort. 2. Coreg. 3. Lasix. 4. Lipitor. 5. Lisinopril. Unit #: [id number] #: [id number] Patient: PAULO MELISSA 6. Aldactone. 7. Nitroglycerin. 8. Ventolin. SOCIAL HISTORY Smokes and drinks alcohol. Denies illicit drugs. FAMILY HISTORY Coronary artery disease, CHF. REVIEW OF SYSTEMS Not able to obtain. Patient very somnolent. PHYSICAL EXAMINATION GENERAL: Somnolent, white male in no distress. Does obviously have sleep apnea when he doses off. VITAL SIGNS: Blood pressure is 118/84, pulse 77, respiratory rate 18, afebrile. O2 sat 94%. HEENT: Normocephalic, atraumatic. Pupils equal, round and reactive. Sclerae are not icteric. Nasal passages patent. Posterior pharynx crowded. NECK: Supple. Trachea midline. No cervical or supraclavicular lymphadenopathy. LUNGS: Diminished breath sounds bilaterally. CARDIAC: Heart sounds distant. Regular rate and rhythm. Could not appreciate murmur, rub or gallop. ABDOMEN: Nontender, protuberant. Bowel sounds present. No hepatosplenomegaly. EXTREMITIES: Without clubbing, cyanosis or edema. NEURO: Arouses but falls back to sleep. Moves all extremities. DIAGNOSTIC STUDIES LABORATORY: Laboratory studies reviewed. Chemistries - unremarkable. ALT and AST elevated at 79. BNP 710. Alcohol level is 453. Lactic acid is 2.0. White blood cell count 3500, hematocrit 46, platelet count 50,000. IMAGING: Chest x-ray - cardiomegaly. No acute infiltrate. IMPRESSION 1. Alcohol intoxication. 2. Dyspnea, probably related to chronic obstructive pulmonary disease and/or congestive cardiomyopathy. 3. Chronic systolic congestive heart failure, ejection fraction 15% to 20%. 4. Alcohol and tobacco abuse. 5. Obstructive sleep apnea, not on treatment. 6. Coronary artery disease. 7. Hypertension. 8. Hyperlipidemia. 9. Chronic back pain. Unit #: [id number] #: [id number] Patient: PAULO MELISSA 10. Thrombocytopenia. Would recommend trying to avoid too much sedation. Treat COPD with inhaled bronchodilators, inhaled corticosteroids. Provide banana bag, thiamine and folic acid. Consider empiric CPAP when can control airway. Intubate if needed. Dictated by... Corey Lee M.D. EVA/ann marie TD: 12/27/2016 11:31 JOB #: [id number] CONSULTATION REPORT Page 1 of 1 X Corey Lee MD CONSULTATION REPORT
--- NOTE | ~2016-12-26 | CO ---
Unit #: [id number] #: [id number] Patient: PAULO MELISSA [id number] [address] [place], [place] [address] [id number] I MR#: [id number] NAME: PAULO MELISSA. ROOM: [facility] Age: 51 Sex: M Admission Date: 12/26/2016 : 1965 Attending Physician: Marychuy Baker M.D. Primary Care Physician: [facility] Consultation Date: 12/27/2016 CONSULTATION REPORT REASON FOR CONSULTATION Shortness of breath and chest pain. HISTORY OF PRESENT ILLNESS This is a 51-year-old white male, who has a history of coronary artery disease, had a heart catheterization this past August by Dr. Ramirez that showed LVEF was 15% to 20% and he has 75% in-stent stenosis in LAD and 75% stenosis in the mid RCA, also COPD, obstructive sleep apnea, hypertension, hyperlipidemia, nicotine and alcohol abuse. The patient had been complaining of increased shortness of breath, especially with exertion. The patient reported that he recently was in [facility] for alcohol intoxication and he has been drinking alcohol. He complained of also some chest tightness after he arrived to the hospital, but before then he denied having chest pain, tightness or heaviness. He has been complaining of having some lower extremity edema. He does not report cough, fever or chills. No presyncope or syncopal episodes. The patient after arrival was found to be intoxicated. His alcohol level was 453. The patient's BNP was 710. His creatinine was 0.7. Initial cardiac enzymes were negative. His WBCs were 3.6, and his platelets were 56. His hemoglobin was 15.9. The patient was put on alcohol withdrawal protocol, had to be moved to the intensive care unit because of his agitation and combativeness and had to be on a high dose withdrawal protocol. The patient's chest x-ray showed the lungs were clear. His EKG showed sinus rhythm with nothing acute previous changes as before. Cardiology was consulted to assist with evaluation and management. PAST MEDICAL HISTORY 1. History of coronary artery disease, had PCI and stent in LAD in 2004. In 2007, had an anterior wall GA, had AngioJet thrombectomy of the LAD and the second diagonal of the LAD and balloon angioplasty to the in-stent stenosis in the proximal LAD. 2. In 2009, [facility] a [facility] 3. 09/05/2016, cardiac cath, here at [facility]'s by Dr. Ramirez showed LVEF of 15% to 20%, 75% in-stent stenosis of the LAD and RCA, 75% stenosis of the mid segment. 4. 09/05/2016, 2D echo showed LVEF of 15%. 5. COPD. 6. Obstructive sleep apnea. 7. Hypertension. 8. Hyperlipidemia. 9. Nicotine and alcohol abuse. 10. History of chronic systolic congestive heart failure. Unit #: [id number] #: [id number] Patient: PAULO MELISSA 11. History of polycythemia. PAST SURGICAL HISTORY Status post PCI and stent to the LAD and RCA. No other surgeries. HOME MEDICATIONS Symbicort 2 puffs inhalation b.i.d., carvedilol 6.25 mg p.o. b.i.d., furosemide 40 mg p.o. daily, Lipitor 80 mg p.o. daily at h.s., lisinopril 5 mg p.o. daily, Aldactone 25 mg p.o. daily, Nitrostat 0.4 mg sublingual p.r.n. for chest pain, Ventolin 2 puffs inhalation every 4 hours p.r.n. ALLERGIES No known drug allergies. SOCIAL HISTORY The patient lives alone, but sometimes he stays with his daughter. He continues to smoke half pack of cigarettes a day. He drinks a few beers daily according to his information. REVIEW OF SYSTEMS See details in HPI. PHYSICAL EXAMINATION GENERAL: Mr. Melissa is a 51-year-old white male, in no acute respiratory distress. He is somewhat somnolent and has been getting IV Ativan. Answers simple questions. VITAL SIGNS: Blood pressure 117/80, heart rate is 76, respirations 18, temperature is 98.8, O2 sats 92% on room air. NECK: Trachea midline. No thyromegaly or lymphadenopathy. Normal carotid upstrokes. No jugular venous distention. HEART: S1, S2. Regular rate and rhythm. No clicks, murmurs, or rubs. LUNGS: Very diminished, otherwise clear. ABDOMEN: Soft and nontender. EXTREMITIES: Pedal pulses are palpable. No pedal edema. DIAGNOSTIC STUDIES LABORATORY RESULTS: Glucose is 152, BUN 7, creatinine 0.5, eGFR is 125.5. Sodium 136, potassium 3.5, chloride 103, CO2 of 22, calcium is 8.3. AST 79, ALT 79, alkaline phosphatase is 50. Bilirubin total is 1.9, total protein 6.8, albumin 4.1. Initial cardiac enzymes; CK-MB is 2.5, troponin less than 0.05. CK-MB is 1.8, troponin less than 0.05. INR is 1.1. BNP is 710. Lactic acid is 2.0. Alcohol is 453. WBC is 3.6, hemoglobin 15.9, hematocrit 47.1, and platelets are 56. Urinalysis is pending. IMAGING STUDIES: Chest x-ray shows stable moderate cardiomegaly, torturous aorta. The lungs are clear. There are no effusions. EKG shows normal sinus rhythm with ventricular rate of 71 beats per minute, biatrial enlargement, left anterior fascicular block, lateral infarct, age undetermined, some ST-T wave abnormalities in anterior leads, slightly prolonged QT. IMPRESSION 1. Alcohol intoxication. 2. Chest pain, questionable etiology. 3. History of coronary artery disease, status post percutaneous coronary intervention. Last cardiac cath 09/05/2016 showed 75% in-stent stenosis in LAD and 75% stenosis in the mid RCA. Unit #: [id number] #: [id number] Patient: PAULO MELISSA 4. Chronic obstructive pulmonary disease. 5. Dyspnea, mild exacerbation of chronic obstructive pulmonary disease. 6. Mild acute on chronic systolic congestive heart failure, left ventricular ejection fraction of 15% to 20%. 7. Obstructive sleep apnea. 8. Thrombocytopenia. 9. Nicotine and alcohol abuse. PLAN 1. The patient was started on IV fluids initially. We will stop them to make sure there is no fluid overload on the patient with an EF of 15% to 20%. We will increase his Lasix today to 40 mg p.o. b.i.d. and monitor his labs. 2. The patient is not on aspirin because of his low platelets. Resume the patient's carvedilol and Lipitor and he is on DAVINA inhibitor for his cardiomyopathy. 3. The patient is on a high level alcohol withdrawal protocol. 4. The patient's cardiac enzymes are negative. His EKGs does not show anything acute. At this point, we will treat his coronary artery disease medically. Continue to monitor his cardiac enzymes. If they stay within normal limits, we will continue medical management. 5. Pulmonary is going to see the patient for his sleep apnea and his COPD. 6. The patient will need some type of alcoholic rehabilitation that will be planned by the executive secretary social welfare and the resident care manager. 7. Given that the patient is able to converse appropriately, we will discuss with him compliancy on his medication. According to the patient, he has not been taking his medication routinely and also discussed with him the cessation of alcohol and tobacco abuse. Smoking cessation information provided to the patient. Thank you very much for allowing us to assist in the care. We will continue to follow this patient closely. Dictated by... Mackenzie Bates/hans TD: 12/29/2016 06:17 JOB #: [id number] CONSULTATION REPORT Page 1 of 1 X Barbara Mckenzie APRN X CONSULTATION REPORT
--- NOTE | ~2016-12-26 | EKG ---
PATIENT: PAULO MELISSA UNIT #: [id number] Ventricular Rate: 104 BPM Atrial Rate: 104 BPM P-R Interval: 160 ms QRS Duration: 106 ms Q-T Interval: 376 ms QTC Calculation(Bezet): 494 ms P Compton: 56 degrees Calculated R Compton: -87 degrees Calculated T Compton: 43 degrees Diagnosis Line: Sinus tachycardia Diagnosis Line: Possible Left atrial enlargement Diagnosis Line: Left anterior fascicular block Diagnosis Line: Poor R wave progression questionable lead position Diagnosis Line: or body habitus Diagnosis Line: Abnormal ECG Diagnosis Line: When compared with ECG of 04-OCT-2016 16:10, Diagnosis Line: No significant change was found Diagnosis Line: Confirmed by ROZINA BARBA MD ([id number]) on Diagnosis Line: 12/27/2016 9:05:10 PM INTERPRETING MD: JERRY
[2016-12-26 09:43] LABS: POC - CKMB 2.5 ng/mL (0.0-7.9); POC - TROPONIN <0.05 ng/mL (<=0.05)
[2016-12-26 10:02] LABS: BASOPHIL% 0.3 % (0-2.5); EOSINOPHIL% 0.4 % (0.0-7.0); HEMATOCRIT 50.5 % (38.0-50.0); HEMOGLOBIN 17.2 gm/dL (13.0-16.0); LYMPHOCYTE# 2.3 X10e3 (1.0-3.5); LYMPHOCYTE% 51.6 % (17.0-45.0); MEAN CELL VOLUME 108.5 FL (83-96); MEAN CORPUSCULAR HEMOGLOBIN 36.9 PG (28-34); MEAN CORPUSCULAR HGB CONC 34.1 g/dL (30-36); MEAN PLATELET VOLUME 8.4 FL (6.5-11.5); MONOCYTE# 0.5 X10e3 (0-1.0); MONOCYTE% 10.1 % (3.0-12.0); NEUTROPHIL# 1.7 X10e3 (1.5-7.1); NEUTROPHIL% 37.6 % (40-75); RED BLOOD COUNT 4.65 X10e (3.90-5.60); RED CELL DISTRIBUTION WIDTH 15.1 % (11.0-15.5); WHITE BLOOD COUNT 4.5 X10e3 (4.0-10.5)
[2016-12-26 10:25] LABS: ALBUMIN SERUM 4.6 g/dL (3.5-5.0); BILIRUBIN, DIRECT 0.3 mg/dL (0.0-0.2); BILIRUBIN,INDIRECT 1.2 mg/dL (0.0-0.9); BILIRUBIN,TOTAL 1.5 mg/dL (0.2-2.0); BUN/CREATININE RATIO 8.57; CALCIUM SERUM 8.6 mg/dL (8.4-10.2); CREATININE SERUM 0.7 mg/dL (0.6-1.4); GLOM FILT RATE Estimated 109.3 mL/min (>60); POTASSIUM 4.4 mmol/L (3.5-5.1); PROTEIN TOTAL SERUM 7.5 g/dL (6.0-8.3)
[2016-12-26 11:00] LABS: PLATELET COUNT 71 X10e3 (140-420)
[2016-12-26 11:01] LABS: POC - CKMB 1.8 ng/mL (0.0-7.9); POC - TROPONIN <0.05 ng/mL (<=0.05)
[2016-12-26 11:01] LABS: DIFF IND YES
[2016-12-26 11:05] LABS: PLATELET ESTIMATE DECREASED (NORMAL)
[2016-12-26 11:06] LABS: ANISOCYTOSIS SL
[2016-12-26] MEDS ORDERED: PATIENT'S PHARMACY (11:29)
[2016-12-27 01:15] LABS: HEMATOCRIT 47.1 % (38.0-50.0); HEMOGLOBIN 15.9 gm/dL (13.0-16.0); MEAN CELL VOLUME 107.6 FL (83-96); MEAN CORPUSCULAR HEMOGLOBIN 36.4 PG (28-34); MEAN CORPUSCULAR HGB CONC 33.8 g/dL (30-36); MEAN PLATELET VOLUME 8.2 FL (6.5-11.5); RED BLOOD COUNT 4.38 X10e (3.90-5.60); RED CELL DISTRIBUTION WIDTH 14.8 % (11.0-15.5); WHITE BLOOD COUNT 3.6 X10e3 (4.0-10.5)
[2016-12-27 03:03] LABS: ALBUMIN SERUM 4.3 g/dL (3.5-5.0); BILIRUBIN,TOTAL 1.8 mg/dL (0.2-2.0); BUN/CREATININE RATIO 13.33; CALCIUM SERUM 8.4 mg/dL (8.4-10.2); CREATININE SERUM 0.6 mg/dL (0.6-1.4); GLOM FILT RATE Estimated 116.5 mL/min (>60); POTASSIUM 3.8 mmol/L (3.5-5.1); PROTEIN TOTAL SERUM 7.1 g/dL (6.0-8.3)
[2016-12-27 03:33] LABS: BASOPHIL% 0.2 % (0-2.5); HEMOGLOBIN 15.5 gm/dL (13.0-16.0); LYMPHOCYTE# 0.5 X10e3 (1.0-3.5); LYMPHOCYTE% 15.5 % (17.0-45.0); MEAN CELL VOLUME 108.6 FL (83-96); MEAN CORPUSCULAR HEMOGLOBIN 36.5 PG (28-34); MEAN CORPUSCULAR HGB CONC 33.6 g/dL (30-36); MEAN PLATELET VOLUME 8.4 FL (6.5-11.5); MONOCYTE# 0.2 X10e3 (0-1.0); MONOCYTE% 6.1 % (3.0-12.0); NEUTROPHIL# 2.7 X10e3 (1.5-7.1); NEUTROPHIL% 78.2 % (40-75); RED BLOOD COUNT 4.24 X10e (3.90-5.60); WHITE BLOOD COUNT 3.5 X10e3 (4.0-10.5)
[2016-12-27 03:39] LABS: DIFF IND NO; PLATELET COUNT 50 X10e3 (140-420)
[2016-12-27 03:50] LABS: ALBUMIN SERUM 4.1 g/dL (3.5-5.0); BILIRUBIN,TOTAL 1.9 mg/dL (0.2-2.0); CALCIUM SERUM 8.3 mg/dL (8.4-10.2); CREATININE SERUM 0.5 mg/dL (0.6-1.4); GLOM FILT RATE Estimated 125.5 mL/min (>60); POTASSIUM 3.5 mmol/L (3.5-5.1); PROTEIN TOTAL SERUM 6.8 g/dL (6.0-8.3)
[2016-12-27 03:56] LABS: THYROID STIMULATING HORMONE 0.72 uIU/ml (0.34-5.60)
[2016-12-27 04:03] LABS: FREE THYROXIN (T4) 0.9 ng/dL (0.58-1.64)
[2016-12-27 14:47] LABS: MAGNESIUM 1.6 mg/dL (1.6-3.0); PHOSPHOROUS 4.3 mg/dL (2.5-4.6)
[2016-12-28 05:24] LABS: HEMATOCRIT 49.1 % (38.0-50.0); HEMOGLOBIN 16.7 gm/dL (13.0-16.0); INR 1.1; LYMPHOCYTE# 0.8 X10e3 (1.0-3.5); LYMPHOCYTE% 12.7 % (17.0-45.0); MEAN CELL VOLUME 108.7 FL (83-96); MEAN CORPUSCULAR HEMOGLOBIN 37.1 PG (28-34); MEAN CORPUSCULAR HGB CONC 34.1 g/dL (30-36); MEAN PLATELET VOLUME 9.2 FL (6.5-11.5); MONOCYTE# 0.3 X10e3 (0-1.0); MONOCYTE% 4.4 % (3.0-12.0); NEUTROPHIL# 5.1 X10e3 (1.5-7.1); NEUTROPHIL% 82.9 % (40-75); PROTHROMBIN TIME (PATIENT) 11.4 SECONDS (9.6-11.5); RED BLOOD COUNT 4.52 X10e (3.90-5.60); RED CELL DISTRIBUTION WIDTH 14.5 % (11.0-15.5)
[2016-12-28 05:29] LABS: PLATELET COUNT 49 X10e3 (140-420); WHITE BLOOD COUNT 6.1 X10e3 (4.0-10.5)
[2016-12-28 05:30] LABS: DIFF IND NO
[2016-12-28 06:06] LABS: ALBUMIN SERUM 4.2 g/dL (3.5-5.0); BILIRUBIN, DIRECT 0.5 mg/dL (0.0-0.2); BILIRUBIN,INDIRECT 2.3 mg/dL (0.0-0.9); BILIRUBIN,TOTAL 2.8 mg/dL (0.2-2.0); CALCIUM SERUM 8.8 mg/dL (8.4-10.2); CREATININE SERUM 0.7 mg/dL (0.6-1.4); GLOM FILT RATE Estimated 109.3 mL/min (>60); POTASSIUM 3.8 mmol/L (3.5-5.1); PROTEIN TOTAL SERUM 7.1 g/dL (6.0-8.3)
[2016-12-28 10:10] LABS: URINE SOURCE CATH
[2016-12-28 10:15] LABS: URINE APPEARANCE CLOUDY; URINE BLOOD 3+ (NEG); URINE COLOR ORANGE; URINE GLUCOSE NEG (NEG); URINE KETONE NEG (NEG); URINE LEUKOCYTE ESTERASE 2+ (NEG); URINE NITRATE POS (NEG); URINE PH 6.5 (5-8); URINE PROTEIN 2+ (NEG); URINE SPECIFIC GRAVITY 1.033 (1.003-1.035)
[2016-12-28 10:18] LABS: URBCS1 AUWI INNUM /[HPF] (0-2); URINE BACTERIA AUWI NEG (NEGATIVE); URINE SQUAMOUS EPITHELIAL CELL OCC /[HPF]; UWBCS1 AUWI 25-50 (0-5)
[2016-12-28 10:25] LABS: URINE BILIRUBIN NEG (NEG)
[2016-12-29 03:53] LABS: BASOPHIL% 0.2 % (0-2.5); HEMATOCRIT 47.8 % (38.0-50.0); HEMOGLOBIN 16.3 gm/dL (13.0-16.0); LYMPHOCYTE# 0.7 X10e3 (1.0-3.5); LYMPHOCYTE% 10.5 % (17.0-45.0); MEAN CELL VOLUME 107.7 FL (83-96); MEAN CORPUSCULAR HEMOGLOBIN 36.7 PG (28-34); MEAN CORPUSCULAR HGB CONC 34.1 g/dL (30-36); MONOCYTE# 0.4 X10e3 (0-1.0); MONOCYTE% 5.6 % (3.0-12.0); NEUTROPHIL# 5.8 X10e3 (1.5-7.1); NEUTROPHIL% 83.7 % (40-75); PLATELET COUNT 51 X10e3 (140-420); RED BLOOD COUNT 4.44 X10e (3.90-5.60); RED CELL DISTRIBUTION WIDTH 14.7 % (11.0-15.5); WHITE BLOOD COUNT 6.9 X10e3 (4.0-10.5)
[2016-12-29 03:54] LABS: DIFF IND NO
[2016-12-29 04:23] LABS: ALBUMIN SERUM 4.2 g/dL (3.5-5.0); BILIRUBIN,TOTAL 2.8 mg/dL (0.2-2.0); BUN/CREATININE RATIO 27.5; CALCIUM SERUM 9.1 mg/dL (8.4-10.2); CREATININE SERUM 0.8 mg/dL (0.6-1.4); GLOM FILT RATE Estimated 103.5 mL/min (>60); MAGNESIUM 1.7 mg/dL (1.6-3.0); POTASSIUM 3.7 mmol/L (3.5-5.1); PROTEIN TOTAL SERUM 6.9 g/dL (6.0-8.3)
[2016-12-30] MEDS ORDERED: PREDNISONE10 MG PO (13:31)
[2016-12-30] MEDS ORDERED: LIBRIUM25 M1 PO (13:33)
[2016-12-30] MEDS ORDERED: CELEXA20 MG PO (13:34)
[2016-12-30] MEDS ORDERED: ASPIRIN81 MG PO (13:34)
[2016-12-30] MEDS ORDERED: B-121000 MC1 PO (13:35)
[2016-12-30] MEDS ORDERED: OLANZAPINE5 MG PO (13:35)
[2016-12-30] MEDS ORDERED: BUSPIRONE HCL7.5 MG PO (13:56)
[2016-12-30] MEDS ORDERED: HYDRALAZINE HCL50 MG PO (14:01)
== END 2016-12-30 16:04 | disposition home or self-care (01) | DRG 896 ==
LOC: CED 08:52 → CEDOF 11:20 → CICCU2 11:20 → CED 11:20 → CEDOF 11:33 → C3A PCU 12:27 → CICCU2 12-27 02:32 → C3A PCU 12-29 15:57
PROVIDERS: Emergency Medicine; Internal Medicine; Internal Medicine Cardiovascular Disease; Urology
DX: F10.221 Alcohol dependence with intoxication delirium (principal); J96.01 Acute respiratory failure with hypoxia; F33.2 Major depressive disorder, recurrent severe without psychotic features; D69.59 Other secondary thrombocytopenia; E88.81 Metabolic syndrome and other insulin resistance; I11.0 Hypertensive heart disease with heart failure; I50.22 Chronic systolic (congestive) heart failure; T82.855A Stenosis of coronary artery stent, initial encounter; J44.1 Chronic obstructive pulmonary disease with (acute) exacerbation; I25.10 Atherosclerotic heart disease of native coronary artery without angina pectoris; G47.33 Obstructive sleep apnea (adult) (pediatric); F17.210 Nicotine dependence, cigarettes, uncomplicated; E78.5 Hyperlipidemia, unspecified; R74.0 Nonspecific elevation of levels of transaminase and lactic acid dehydrogenase [LDH]; E66.9 Obesity, unspecified; F41.8 Other specified anxiety disorders; M54.9 Dorsalgia, unspecified; D75.1 Secondary polycythemia; F10.231 Alcohol dependence with withdrawal delirium; Y90.8 Blood alcohol level of 240 mg/100 ml or more; D53.9 Nutritional anemia, unspecified; R31.9 Hematuria, unspecified; K43.9 Ventral hernia without obstruction or gangrene; F40.01 Agoraphobia with panic disorder; I25.5 Ischemic cardiomyopathy
CPT/HCPCS: 36415; 71010; 80048; 80053; 80076; 80202; 81003; 82553; 83540; 83550; 83605; 83690; 83735; 83880; 84100; 84439; 84443; 84484; 85025; 85027; 85610; 86592; 87040; 87086; 93005; 94640; 94660; 94664; 94760; 94761; 96374; 96375; 97166; 97535; 99285; G0480; J1885; J2060; J2920; J2930

== ENCOUNTER 2017-02-22 12:31 | Inpatient (IN) | payer OTHER ==
[~2017-02-22] VITALS: Ht 165.1 cm; Wt 88.6 kg
--- NOTE | ~2017-02-22 | CR72 ---
[facility] A Service of [facility] RADIOLOGY TEXT RESULTS PATIENT: PAULO MELISSA LOCATION: [facility] 54 : [birth year] UNIT #: [id number] AGE: [address]: MARITZA AGUILAR MD SEX: M ORDER DR: [id number] [place] [id number] [facility]. [place], [place] [address] [id number] I MR#: [id number] Acc #: [id number] NAME: PAULO MELISSA. : 1965 SEX: M STUDY DATE/TIME: 02/22/2017 14:32 UNIT: [facility] ROOM: [facility] STUDY DESCRIPTION: CR Chest Single View Portable Attending Physician: Maritza Aguilar M.D. Ordering Physician: Rene Lowry M.D. Primary Care Physician: [facility] MEDICAL IMAGING REPORT This report is preliminary unless electronic signature is present EXAM Frontal chest 02/22/2017 INDICATIONS 51-year-old male with cough, shortness of air, depression, suicidal. Symptoms began today. TECHNIQUE/COMPARISON Frontal chest compared with 12/26/2016 FINDINGS There is marked cardiomegaly. This appears more prominent than on the prior study which may reflect interval increase in actual cardiomegaly versus pericardial effusion. There is no pneumothorax. No distinct evidence of volume overload. There is probable bronchovascular crowding. No dense consolidation or effusion. IMPRESSION Cardiomegaly which appears increased compared to the prior study. This may reflect interval increase in actual cardiomegaly or pericardial effusion. Low lung volumes with bronchovascular crowding. Dictated by... Momo Bishop M.D. THIS IS AN ELECTRONICALLY VERIFIED REPORT Momo Bishop M.D. at 02/22/2017 11:07 PM JLY/srikanth TD: 02/22/2017 22:00 JOB #: [id number] [facility] A Service of [facility] RADIOLOGY TEXT RESULTS PATIENT: PAULO MELISSA [facility] [address] [facility] [id number] : [birth year] UNIT #: [id number] AGE: [address]: MARITZA AGUILAR MD SEX: M ORDER DR: MEDICAL IMAGING REPORT Page 1 of 1 COPY
--- NOTE | ~2017-02-22 | CO ---
Unit #: [id number] #: [id number] Patient: RICHI MELISSA [id number] [facility] [address] [facility]. [place], [place] [address] [id number] I MR#: [id number] NAME: RICHI MELISSA. ROOM: 547 Age: 51 Sex: M Admission Date: 02/22/2017 : 1965 Attending Physician: Marychuy Baker M.D. Primary Care Physician: [facility]. Consultation Date: 02/23/2017 CONSULTATION REPORT REASON FOR CONSULTATION Depression, anxiety, suicidal ideation. HISTORY OF PRESENT ILLNESS Mr. Richi Melissa is a 51-year-old white male, seen in room 547, bed 1 on 02/23/2017 at [facility]. The patient is dressed in hospital attire, lying comfortably in bed. The patient has a sitter. The patient reports that he made comments when he was upset. The patient reports he needs to go back on his medication, which was helping him. The patient's vital signs; temperature 97.3, pulse 101, respirations 20, blood pressure 125/83, oxygen saturation 95%. The patient is able to contract for safety, but had suicidal ideation. Reported that he has gun at home. The patient's blood alcohol level was 404 at the time of admission. The patient denied any use of other drugs. PAST PSYCHIATRIC HISTORY Remarkable for history of depression, alcohol abuse, bipolar mood disorder, COPD, congestive heart failure with ejection fraction of 15%, polycythemia, obstructive sleep apnea, chronic alcohol abuse, coronary artery disease, macrocytosis, tobacco use, hypertension, hyperlipidemia, chronic low back pain. ALLERGIES No known drug allergies. MEDICATIONS Symbicort, Coreg, Lasix, Lipitor, lisinopril, Aldactone, nitroglycerin, Ventolin. FAMILY HISTORY AND SOCIAL HISTORY The patient reports that he has a good support system. No history of abuse. History of substance abuse as mentioned above. REVIEW OF SYSTEMS Complete review of systems is unremarkable except as mentioned above. PHYSICAL EXAMINATION The patient's vital signs; please see above. General appearance; the patient is dressed casually, lying comfortably in bed. Attention span and concentration, fair to poor. Speech is rapid in rate. Oriented in time, place, and person. Mood and affect, labile. Thought process, circumstantial. Thought content, guarded, paranoid, reported making suicidal statements, sad, depressed. Recent and remote memory, poor. Language, intact. Fund of knowledge, fair. Insight and judgment, fair to Unit #: [id number] #: [id number] Patient: RICHI MELISSA slightly impaired. DIAGNOSES Psychiatric: Alcohol use disorder, severe, F10.20; bipolar mood disorder, recurrent, severe, depressed, F31.9. Secondary diagnosis: Deferred. Medical diagnosis: Please refer to H and P. Stressors: Psychosocial stressor. ASSESSMENT/PLAN 1. Supportive psychotherapy and psychoeducation were provided to the patient. 2. Educated about benefits and side effects of his medication and course and prognosis of illness. 3. Advised to continue with current treatment with a plan to stabilize the patient and consider transferring the patient to [facility] for inpatient psychiatric stabilization. Dictated by... Bianca Granados/hans TD: 02/27/2017 01:41 JOB #: [id number] CONSULTATION REPORT Page 1 of 1 X Yosef Trotter MD X CONSULTATION REPORT
--- NOTE | ~2017-02-22 | DS ---
Unit #: [id number] #: [id number] Patient: PAULO MELISSA [id number] [address] [address] [id number] I MR#: [id number] NAME: PAULO MELISSA. ROOM: 547 Age: 51 Sex: M Admission Date: 02/22/2017 : 1965 Discharge Date: 02/24/2017 Attending Physician: Marychuy Baker M.D. [facility] SUMMARY PRINCIPAL DIAGNOSES 1. Non ST segment elevation myocardial infarction. 2. Coronary artery disease with known in-stent stenosis of the left anterior descending and 75% of right coronary artery per heart cath in 08/2016. 3. Acute alcohol intoxication. 4. Chronic alcohol abuse without evidence of withdrawal. 5. Suicidal ideation now resolved. 6. Acute hypoxic respiratory failure now resolved. 7. Chronic systolic congestive heart failure, ejection fraction of 15%. No acute exacerbation. 8. Chronic obstructive pulmonary disease. 9. Chronic polycythemia secondary to untreated obstructive sleep apnea. 10. Obstructive sleep apnea, untreated. 11. Insulin residence. 12. Severe anxiety and depression. 13. Tobaccoism. 14. Obesity. 15. Chronic back pain. CONSULTANTS Dr. Ramirez of cardiology and Dr. Yosef Trotter or psychiatry. PROCEDURES Chest x-ray 02/22/2017 with cardiomegaly. Low lung volumes with bronchovascular crowding noted. CLINICAL HISTORY AND HOSPITAL COURSE Mr. Melissa is a 51-year-old male with a history of chronic alcohol abuse and significant congestive heart failure who was brought to the emergency department with reports of suicidal ideation. Patient had a gun next to him on the table, thinking it was better to , per the patient's words. The patient was subsequently brought to the hospital by his father. At that time of presentation he was found to have an alcohol level of 400. Patient also had mildly elevated troponins of 0.1. He was subsequently admitted. In regards to patient's elevated troponin, Dr. Ramirez was consulted. Troponin the following morning peaked at 0.24 but it subsequently trended back down. Unfortunately patient has known coronary artery disease and is noncompliant with both his medications and other medical recommendations. He is now chest pain free and Troponin is trending down. The plan at this point is continued medical management only. Patient also has known congestive heart failure but had no acute exacerbation. Unit #: [id number] #: [id number] Patient: PAULO MELISSA HOSPITAL COURSE In regards to patient's suicidal ideation, he was placed on 72 hour Hold and a sitter was also placed in the room. Dr. Trotter was consulted. The following morning the patient denies that he ever had any suicidal ideation. He states it was something he said when he was drunk and he has no active suicidal ideation or plan to hurt himself. After evaluation by Dr. Trotter, 72 hour hold was discontinued and sitter was also discontinued. Patient was placed back on his chronic depression medications and seems to be doing much better today. He will continue with these medications on an outpatient basis. Patient was mildly hypoxic upon presentation but with increasing sobriety his hypoxia resolved. He also has significant underlying obstructive sleep apnea for which he has yet to received outpatient polysomnography and this will be done on an outpatient basis. Patient's other chronic issues remained stable. He is ambulating well, eating, awake and alert and will be discharged home today. DISCHARGE CONDITION Stable. DISCHARGE STATUS Discharged to home. DISCHARGE MEDICATIONS 1. Albuterol inhaler two puffs every 4 hour p.r.n. for shortness of breath. No refill given. 2. Symbicort 160/4.5 mcg two puffs b.i.d. with one refill. 3. Celexa 20 mg daily with one refill. 4. Lipitor 80 mg daily with one refill. 5. BuSpar 7.5 mg b.i.d. with one refill. 6. Coreg 6.25 mg b.i.d. with one refill. 7. Lasix 40 mg daily with one refill. 8. Lisinopril 5 mg daily with one refill. 9. Mobic 15 mg p.o. daily with one refill. 10. Spironolactone 25 mg daily with one refill. 11. Zyprexa 10 mg p.o. b.i.d. with one refill. 12. Aspirin 81 mg daily. 13. Vitamin B12 1,000 mcg p.o. daily. DISCHARGE INSTRUCTIONS The patient was instructed to follow a heart healthy diabetic diet. He can increase activity as tolerated. Should refrain from any further alcohol use or tobacco use. FOLLOWUP The patient will followup with [facility] in one week. Patient will followup with Dr. Ramirez as instructed. Time spent on discharge today 34 minutes. Dictated by... Marychuy Baker M.D. [facility]/ Unit #: [id number] #: [id number] Patient: PAULO MELISSA TD: 02/24/2017 12:46 JOB #: [id number] DISCHARGE SUMMARY Page 1 of 1 X Marychuy Baker MD X DISCHARGE SUMMARY
--- NOTE | ~2017-02-22 | DS ---
Unit #: [id number] #: [id number] Patient: PAULO MELISSA [id number] [address] [address] [id number] I MR#: [id number] NAME: PAULO MELISSA. ROOM: 547 Age: 51 Sex: M Admission Date: 02/22/2017 : 1965 Discharge Date: 02/24/2017 Attending Physician: Marychuy Baker M.D. Primary Care Physician: [facility] DISCHARGE SUMMARY ADDENDUM The patient was seen in consultation by social work after my visit earlier this morning. There were concerns about increasing alcohol withdraw. The patient was seen in consultation by [facility] who do not feel he required inpatient alcohol treatment at this time. The patient was given a prescription for Librium 25 mg 1 tablet p.o. t.i.d. for 2 days and then 1 tablet b.i.d. for 2 days, then 1 tablet daily for 2 days. Dictated by... Marychuy Baker M.D. MELANIE/gokul TD: 02/27/2017 08:36 JOB #: [id number] DISCHARGE SUMMARY Page 1 of 1 X Marychuy Baker MD DISCHARGE SUMMARY
--- NOTE | ~2017-02-22 | EKG ---
PATIENT: PAULO MEILSSA UNIT #: [id number] Ventricular Rate: 86 BPM Atrial Rate: 86 BPM P-R Interval: 152 ms QRS Duration: 102 ms Q-T Interval: 426 ms QTC Calculation(Bezet): 509 ms P [place]: 48 degrees Calculated R [place]: -61 degrees Calculated T [place]: 19 degrees Diagnosis Line: Normal sinus rhythm Diagnosis Line: Left anterior fascicular block Diagnosis Line: Cannot rule out Lateral infarct , age undetermined Diagnosis Line: Prolonged QT Diagnosis Line: Abnormal ECG Diagnosis Line: When compared with ECG of 23-FEB-2017 08:36, Diagnosis Line: No significant change was found Diagnosis Line: Confirmed by SANDRA BLACK MD ([id number]) on 02/26/2017 Diagnosis Line: 2:44:59 PM INTERPRETING MD: SOFIA MIRANDA
--- NOTE | ~2017-02-22 | HP ---
Unit #: [id number] #: [id number] Patient: PAULO MELISSA [id number] [address] [address] [id number] I MR#: [id number] NAME: PAULO MELISSA. ROOM: 547 Age: 51 Sex: M Admission Date: 02/22/2017 : 1965 Attending Physician: Maritza Aguilar M.D. Primary Care Physician: [facility]. HISTORY AND PHYSICAL CHIEF COMPLAINT Suicidal ideation. HISTORY OF PRESENT ILLNESS The patient is a 51-year-old male with a history of alcohol abuse, depression, and anxiety, brought to the emergency room with suicidal ideation. The patient was recently discharged from the hospital on December 30 after a prolonged hospital stay with acute delirium tremens, acute hypoxic respiratory failure, and COPD exacerbation. The patient stated that patient was on depression medication and ran out of the depression medication due to lack of outpatient followup. The patient started drinking beer and then had suicidal ideation this morning. The patient is a poor historian, and the history is obtained by speaking to the patient's father at the bedside. 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 The patient had suicidal ideation earlier this morning with a gun next to him on the table thinking that it is better to as per the patient's words. The patient was brought to the hospital with an alcohol level of 404 and suicidal ideation. The patient also has mildly elevated positive troponins of 0.13 and 0.14 and is being admitted for the above reasons. Denies any fever, denies any chills, denies any chest pain, and denies any nausea or vomiting. PAST MEDICAL HISTORY 1. Chronic obstructive pulmonary disease. 2. Congestive heart failure with EF of 15%. 3. Polycythemia. 4. Obstructive sleep apnea. 5. Chronic alcohol abuse. 6. Coronary artery disease. 7. Macrocytosis. 8. Tobacco use. 9. Hypertension. 10. Hyperlipidemia. 11. Chronic low back pain. PAST SURGICAL HISTORY Cardiac stents back in 2004, 2007, and 2009. ALLERGIES No known drug allergies. HOME MEDICATIONS 1. Symbicort. Unit #: [id number] #: [id number] Patient: SHIN,PAULO E 2. Coreg. 3. Lasix. 4. Lipitor. 5. Lisinopril. 6. Aldactone. 7. Nitroglycerin. 8. Ventolin. SOCIAL HISTORY Patient smokes a few cigarettes per day and drinks a few beers every day as per the patient. He had three beers earlier this morning. He denies any illicit drug abuse. FAMILY HISTORY Reviewed and none. REVIEW OF SYSTEMS Positive for suicidal ideation. Positive for alcohol abuse. Denies any chest pain, denies any nausea or vomiting, and denies any shortness of breath. All other systems have been reviewed and all other systems are negative. PHYSICAL EXAMINATION GENERAL: Patient is lying in bed not in acute distress. VITAL SIGNS: Temperature is 98.3, pulse 103, respiratory rate 18, blood pressure 150/112, and saturating 96% on room air. HEENT: Head is atraumatic and normocephalic. Pupils equal, round, and reactive to light and accommodation. Dry mucous membranes. NECK: Supple. LUNGS: Decreased air entry at the bases. HEART: Regular rate and rhythm. Positive for tachycardia and murmur. ABDOMEN: Soft. Positive bowel sounds. EXTREMITIES: No cyanosis, no clubbing. NEUROLOGIC: Alert, awake, and oriented. Positive for resting tremors. PSYCHIATRIC: Patient appears depressed. He denies any suicidal ideation in the emergency room. DIAGNOSTIC STUDIES LABORATORY: BNP is 148. Troponin is 0.14 and repeat one is 0.13. Sodium 140, potassium 3.8, chloride 103, bicarb 26, glucose 128, BUN 5, creatinine 0.6, AST 30, ALT 27, alkaline phosphatase 61, and albumin 4.3. WBC 8.6, hemoglobin is 17.6, hematocrit 51.5, and platelets of 270,000. Alcohol level is 404. INR is 1. CARDIOLOGY: EKG shows sinus rhythm with occasional PVCs and left anterior fascicular block. ASSESSMENT 1. Suicidal ideation. 2. Alcohol intoxication. 3. Non-ST elevation myocardial infarction. PLAN Admit the patient to inpatient with telemetry. Will have Cardiology consult for the non-STEMI and Psychiatry consult for the suicidal ideation. Continue with CIWA protocol, and (1) at the bedside. Repeat the labs again in the morning. Patient will have gentle fluids with D5 NS at 50 mL/hour for 1 liter, and further recommendations will Unit #: [id number] #: [id number] Patient: PAULO MELISSA follow. Dictated by Bianca Aguilar TD: 02/22/2017 20:56 JOB #: [id number] HISTORY AND PHYSICAL Page 1 of 1 X MARITZA AGUILAR MD X HISTORY AND PHYSICAL
--- NOTE | ~2017-02-22 | EKG ---
PATIENT: PAULO MELISSA UNIT #: [id number] Ventricular Rate: 85 BPM Atrial Rate: 85 BPM P-R Interval: 156 ms QRS Duration: 104 ms Q-T Interval: 422 ms QTC Calculation(Bezet): 502 ms P [place]: 39 degrees Calculated R [place]: -51 degrees Calculated T [place]: 12 degrees Diagnosis Line: Normal sinus rhythm Diagnosis Line: Left anterior fascicular block Diagnosis Line: Prolonged QT Diagnosis Line: Abnormal ECG Diagnosis Line: When compared with ECG of 22-FEB-2017 14:09, Diagnosis Line: (unconfirmed) Diagnosis Line: Premature ventricular complexes are no longer Diagnosis Line: Present Diagnosis Line: Confirmed by SANDRA BLACK MD ([id number]) on 02/23/2017 Diagnosis Line: 7:22:35 PM INTERPRETING MD: SOFIA MIRANDA
--- NOTE | ~2017-02-22 | EKG ---
PATIENT: PAULO MELISSA UNIT #: [id number] Ventricular Rate: 90 BPM Atrial Rate: 90 BPM P-R Interval: 160 ms QRS Duration: 104 ms Q-T Interval: 392 ms QTC Calculation(Bezet): 479 ms P [place]: 72 degrees Calculated R [place]: -67 degrees Calculated T [place]: 52 degrees Diagnosis Line: Sinus rhythm with occasional Premature ventricular Diagnosis Line: complexes Diagnosis Line: Left anterior fascicular block Diagnosis Line: Anterior infarct (cited on or before 28-DEC-2016) Diagnosis Line: Abnormal ECG Diagnosis Line: When compared with ECG of 28-DEC-2016 06:35, Diagnosis Line: Premature ventricular complexes are now Present Diagnosis Line: Non-specific change in ST segment in Lateral leads Diagnosis Line: T wave inversion no longer evident in Anterior Diagnosis Line: leads Diagnosis Line: QT has shortened Diagnosis Line: Confirmed by SANDRA BLACK MD ([id number]) on 02/23/2017 Diagnosis Line: 7:09:35 PM INTERPRETING MD: SOFIA MIRANDA
--- NOTE | ~2017-02-22 | CO ---
Unit #: [id number] #: [id number] Patient: PAULO MELISSA [id number] [facility]. [place], [place] [address] [id number] MR#: [id number] NAME: PAULO MELISSA. ROOM: 547 Age: 51 Sex: M Admission Date: 02/22/2017 : 1965 Attending Physician: Marychuy Baker M.D. Primary Care Physician: [facility] Consultation Date: 02/23/2017 CONSULTATION REPORT REASON FOR CONSULTATION Chest pain. HISTORY OF PRESENT ILLNESS This is a 51-year-old white male with known history of having previous angioplasty and stents and his last catheterization was performed by Dr. Ramirez here at [facility]. Lynsey's this past August that showed EF of 15% to 20%. He has a 75% in-stent stenosis of the LAD and RCA and 75% stenosis in the mid segment. His echo also in August showed an EF of 15%. He has a history of chronic systolic heart failure, COPD, obstructive sleep apnea, and hypertension. He does have a history of alcohol abuse. According to information, he was brought in I think depressed and his father said he is suicidal. The patient has been drinking that day. He says he drinks 4 or 5 large beers daily, but has not had any hard liquor in a while. It looks like he was discharged here in December after having acute DTs and also acute exacerbation of COPD. The patient did mention to the staff in the ER that he was on depression medication that ran out and he felt like that he had some suicidal ideation in the morning of admission. He did not go back to follow up to get his medication refilled. At this point, the patient is a fairly poor historian due to being on alcohol withdrawal protocol. He is a little sedated, but he does answer most questions fairly appropriately. According to the father's story, the patient was laid off from his work at [employer] 3 days ago. The patient told the father that he had suicidal ideation and he had a gun next to him on the table thinking that it was better to per the father's stating what the patient told him. In the emergency room, the patient's alcohol level was 404. The patient had mildly elevated troponins of 0.13 and 0.14. He did admit to having some occasional left anterior chest wall tightness, he says like a squeezing pressure. He says he has been having it off and on for a couple of weeks and it only lasts about 15 seconds. He denies any radiation of that discomfort up into the neck, bilateral jaws, shoulders, arms or elbow. He denies any short of breath. Denies any palpitations, dizziness, presyncope, or syncope. No increased lower extremity edema. Cardiology has been consulted to assist with evaluation and management. PAST MEDICAL HISTORY 1. History of coronary artery disease, had a PCI and stent placed in 2004 and in 2007, he had an anterior wall RI. He had thrombectomy of the LAD and second diagonal of the LAD and balloon angioplasty to the in-stent stenosis in the proximal LAD, in 2009, had PCI and stent to an unknown vessel at [facility]. 2. 08/2016, caths done at [facility]. Lynsey's showed LVEF of 15% to 20% with 75% Unit #: [id number] #: [id number] Patient: PAULO MELISSA in-stent stenosis of the LAD and RCA and 75% stenosis in the mid segment. 3. 08/2016, 2D echo showed LVEF of 15%. 4. Chronic systolic congestive heart failure. 5. COPD, obstructive sleep apnea. 6. Hypertension. 7. Hyperlipidemia. 8. Polycythemia. 9. Obesity; 186 pounds, BMI of 33. 10. Nicotine abuse. 11. Alcohol abuse. PAST SURGICAL HISTORY Status post PCI and stent in 2004 and again in 2009. HOME MEDICATIONS Olanzapine 10 mg p.o. b.i.d., vitamin B12 1000 mcg p.o. daily, BuSpar 7.5 mg p.o. b.i.d., hydroxyzine 50 mg p.o. t.i.d., Mobic 15 mg p.o. daily, Symbicort 2 puffs inhalation b.i.d., furosemide 40 mg 1 tablet daily, Ventolin 2 puffs inhalation every 4 hours p.r.n., Celexa 20 mg p.o. at h.s., aspirin 81 mg daily. ALLERGIES No known drug allergies. SOCIAL HISTORY The patient lives in an apartment. He says he does not drive. He walks to work. According to the father, he was laid off lead off 3 days ago. He drinks several beers a day, but he reports he has not had any hard liquor in some time. He smokes about half to a pack of cigarettes a day. REVIEW OF SYSTEMS See details in HPI. PHYSICAL EXAMINATION GENERAL: Mr. Melissa is a 51-year-old white male, in no acute respiratory distress. He is awake, alert, somewhat sedated and drowsy due to sedation for the alcohol withdrawal protocol. VITAL SIGNS: Blood pressure is 142/91, this morning 112/96, respirations 18, heart rate 80s to 90s, temperature is 99.2, O2 sats 92% to 94% on room air. NECK: Trachea midline. No thyromegaly or lymphadenopathy. Normal carotid upstrokes. No jugular venous distention. HEART: S1, S2. Regular rate and rhythm. No clicks, murmurs, or rubs. LUNGS: Diminished, otherwise clear. ABDOMEN: Obese, soft, nontender. EXTREMITIES: Pedal pulses are palpable. No pedal edema. DIAGNOSTIC STUDIES LABORATORY RESULTS: Glucose 101, BUN 7, creatinine 0.7, eGFR is 109.3. Sodium 139, potassium is 3.6, chloride 104, CO2 of 27, calcium is 8.8, total protein 7.6, albumin 4.3, bilirubin total is 0.7. AST is 30, ALT 27, alkaline phosphatase is 61, BNP 148. Alcohol level is 404. WBC is 8.3, hemoglobin 16.4, hematocrit is 48.7, platelets is 225. Initial cardiac enzymes; CK-MB is 2.3, troponin was 0.13. CK-MB is 2.3, troponin 0.14. INR is 1.0. Urine tox screen is negative. IMAGING STUDIES: Chest x-ray shows cardiomegaly and increase in actual cardiomegaly or pericardial effusion. Unit #: [id number] #: [id number] Patient: PAULO MELISSA EKG shows sinus rhythm with occasional premature ventricular complex, left anterior fascicular block, anterior infarct, age undetermined, left ventricular hypertrophy, poor R-wave progression. IMPRESSION 1. Alcohol intoxication. 2. Suicidal ideation. 3. Mildly elevated troponin. 4. Left anterior chest wall pain. 5. History of coronary artery disease, status post percutaneous coronary intervention and stent with in-stent stenosis in left anterior descending that remain 75% and the right coronary artery 75%. 6. Chronic systolic congestive heart failure, left ventricular ejection fraction of 15%. 7. Chronic obstructive pulmonary disease. 8. Alcohol abuse. 9. History of polycythemia. 10. Obstructive sleep apnea. 11. Obesity. PLAN 1. Cardiology consult to assist with evaluation and management. No chest pain. 2. A troponin of 0.14 is not indicative of acute coronary syndrome. 3. On exam and interview. Dr. Ramirez felt his symptoms are more atypical musculoskeletal in nature; however, we will continue to monitor. 4. The patient has not been on his statin and his beta-roman and his DAVINA inhibitor. So, we will reinitiate those medications and try aggressive medical management for now. 5. The patient will obtain a fasting lipid profile and evaluate. 6. The patient is under alcohol withdrawal protocol. 7. If the patient's cardiac enzymes trend downward and there are no further issues, we will continue with conservative medical management for now and CHF control. 8. Reinforced with the patient CHF education including fluid restriction and salt restriction. Information was provided to the patient. 9. The patient is re-initiated on DAVINA inhibitor for his cardiomyopathy. 10. Further recommendations pending per Dr. Ramirez. Thank you very much for allowing us to assist in his care. Dictated by... Ganesh Bates.P.R.N. for Bianca Martin/hans TD: 02/24/2017 06:47 JOB #: [id number] Unit #: [id number] #: [id number] Patient: PAULO MELISSA Ayleen CONSULTATION REPORT Page 1 of 1 X Barbara Mckenzie APRN CONSULTATION REPORT
--- NOTE | ~2017-02-22 | CO ---
Unit #: [id number] #: [id number] Patient: RICHI MELISSA [id number] [facility] [address] [facility]. [place], [place] [address] [id number] MR#: [id number] NAME: RICHI MELISSA. ROOM: 547 Age: 51 Sex: M Admission Date: 02/22/2017 : 1965 Attending Physician: Marychuy Baker M.D. Primary Care Physician: [facility] Consultation Date: 02/24/2017 CONSULTATION REPORT REASON FOR CONSULTATION Followup discussion. HISTORY OF PRESENT ILLNESS Mr. Richi Melissa is a 51-year-old white male, seen in room 547, bed 1 at [facility] on 02/24/2017. The patient dressed casually in hospital attire, lying comfortably. The patient reports feeling better and ready to go home. The patient reported increase in anxiety and depression. The patient currently denies any suicidal or homicidal ideation. Denies any psychotic symptom. The patient reports medication is helping him a lot. The patient reports that he does not need to come to inpatient [facility] program, but agreeable to come to Our outpatient program at [facility]. The patient's vital signs; temperature 97.3, pulse 101, respirations 20, blood pressure 125/83, and oxygen saturation 95%. REVIEW OF SYSTEMS Complete review of systems unremarkable. MENTAL STATUS EXAMINATION General appearance; the patient is dressed casually in hospital attire, lying comfortably in bed. Attention span and concentration, fair. Speech, regular rate and coherent. Oriented in time, place, and person. Mood and affect, sad and dysphoric. Thought process, coherent. Thought content, the patient denied any thoughts of harming self or others or any psychotic symptom. Recent and remote memory, fair. Language, intact. Fund of knowledge, fair to slightly impaired. DIAGNOSES Psychiatric: Alcohol use disorder, severe, F10.20; major depressive disorder, recurrent, severe, F33.2; anxiety disorder, not otherwise specified, F40.01. ASSESSMENT AND PLAN 1. Supportive psychotherapy and psychoeducation were provided to the patient. 2. Educated about benefits and side effects of medication and course and prognosis of illness. 3. Advised to continue with current combination of medication. The patient was advised to continue with Celexa 20 mg at bedtime, BuSpar 7.5 mg b.i.d., Zyprexa 10 mg b.i.d. and advised to follow up at [facility]. The patient was given crisis line telephone #[phone]. Please feel free to call if any questions, telephone #[phone]. Unit #: [id number] #: [id number] Patient: RICHI MELISSA Dictated by... Bianca Granados/hans TD: 02/26/2017 23:41 JOB #: [id number] CONSULTATION REPORT Page 1 of 1 X Yosef Trotter MD X CONSULTATION REPORT
[~2017-02-22 12:31] MED LIST changes: +B-121000 MC1 PO; +BUSPIRONE HCL7.5 MG PO; +CELEXA20 MG PO; +HYDRALAZINE HCL50 MG PO; +LIBRIUM25 M1 PO; +OLANZAPINE5 MG PO; +PATIENT'S PHARMACY; +PREDNISONE10 MG PO
[2017-02-22 12:58] LABS: BASOPHIL% 0.3 % (0-2.5); EOSINOPHIL% 0.4 % (0.0-7.0); HEMATOCRIT 51.5 % (38.0-50.0); HEMOGLOBIN 17.6 gm/dL (13.0-16.0); LYMPHOCYTE# 3.8 X10e3 (1.0-3.5); LYMPHOCYTE% 43.7 % (17.0-45.0); MEAN CELL VOLUME 107.5 FL (83-96); MEAN CORPUSCULAR HEMOGLOBIN 36.8 PG (28-34); MEAN CORPUSCULAR HGB CONC 34.3 g/dL (30-36); MONOCYTE# 0.6 X10e3 (0-1.0); NEUTROPHIL# 4.2 X10e3 (1.5-7.1); NEUTROPHIL% 48.6 % (40-75); PLATELET COUNT 270 X10e3 (140-420); RED BLOOD COUNT 4.79 X10e (3.90-5.60); RED CELL DISTRIBUTION WIDTH 13.9 % (11.0-15.5); WHITE BLOOD COUNT 8.6 X10e3 (4.0-10.5)
[2017-02-22 12:59] LABS: DIFF IND YES
[2017-02-22 13:17] LABS: PARTIAL THROMBOPLASTIN TIME 29.8 SECONDS (23.5-31.3); PROTHROMBIN TIME (PATIENT) 10.9 SECONDS (10.0-11.7)
[2017-02-22 13:19] LABS: PLATELET ESTIMATE NORMAL (NORMAL)
[2017-02-22 13:22] LABS: ACETAMINOPHEN <10 ug/mL; ALBUMIN SERUM 4.3 g/dL (3.5-5.0); ALKALINE PHOSPHATASE 61 U/L (32-92); ALT (SGPT) 27 U/L (10-40); AST (SGOT) 30 U/L (10-42); BILIRUBIN, DIRECT 0.1 mg/dL (0.0-0.2); BILIRUBIN,INDIRECT 0.6 mg/dL (0.0-0.9); BILIRUBIN,TOTAL 0.7 mg/dL (0.2-2.0); BLOOD UREA NITROGEN 5 mg/dL (9-23); BUN/CREATININE RATIO 8.33; CALCIUM SERUM 8.4 mg/dL (8.4-10.2); CARBON DIOXIDE 26 mmol/L (22-31); CHLORIDE 103 mmol/L (100-111); CREATININE SERUM 0.6 mg/dL (0.6-1.4); GLOM FILT RATE Estimated 116.5 mL/min (>60); GLUCOSE FASTING 128 mg/dL (70-110); POTASSIUM 3.8 mmol/L (3.5-5.1); PROTEIN TOTAL SERUM 7.6 g/dL (6.0-8.3); SALICYLATE <4.0 mg/dL; SODIUM 140 mmol/L (135-145)
[2017-02-22 13:23] LABS: ALCOHOL BLOOD 404 mg/dL (0)
[2017-02-22 14:23] LABS: POC - CKMB 2.3 ng/mL (0.0-7.9); POC - TROPONIN 0.13 ng/mL (<=0.05)
[2017-02-22 15:00] LABS: POC - CKMB 2.3 ng/mL (0.0-7.9); POC - TROPONIN 0.14 ng/mL (<=0.05)
[2017-02-22] MEDS ORDERED: HYDROXYZINE HCL50 MG PO (16:00)
[2017-02-22] MEDS ORDERED: MOBIC PO (16:02)
[2017-02-22 16:37] LABS: AMPHETAMINE NEG (NEG); BARBITURATES NEG (NEG); BENZODIAZEPINES NEG (NEG); COCAINE NEG (NEG); MARIJUANA NEG (NEG); OPIATES NEG (NEG); TRICYCLIC ANTIDEPRESSANTS NEG (NEG); U METHADONE NEG (NEG)
[2017-02-22 20:55] LABS: THYROID STIMULATING HORMONE 0.93 uIU/ml (0.34-5.60)
[2017-02-22 21:02] LABS: FREE THYROXIN (T4) 0.73 ng/dL (0.58-1.64)
[2017-02-23 06:16] LABS: HEMATOCRIT 48.7 % (38.0-50.0); HEMOGLOBIN 16.4 gm/dL (13.0-16.0); MEAN CELL VOLUME 107.7 FL (83-96); MEAN CORPUSCULAR HEMOGLOBIN 36.3 PG (28-34); MEAN CORPUSCULAR HGB CONC 33.7 g/dL (30-36); MEAN PLATELET VOLUME 7.5 FL (6.5-11.5); RED BLOOD COUNT 4.52 X10e (3.90-5.60); RED CELL DISTRIBUTION WIDTH 13.8 % (11.0-15.5); WHITE BLOOD COUNT 8.3 X10e3 (4.0-10.5)
[2017-02-23 06:59] LABS: CALCIUM SERUM 8.8 mg/dL (8.4-10.2); CREATININE SERUM 0.7 mg/dL (0.6-1.4); GLOM FILT RATE Estimated 109.3 mL/min (>60); POTASSIUM 3.6 mmol/L (3.5-5.1)
[2017-02-23 10:26] LABS: %MB 3.1 % (0.0-4.0); MB 2.7 ng/ml
[2017-02-23 11:01] LABS: %MB 3.2 % (0.0-4.0); MB 2.9 ng/ml
[2017-02-24 04:57] LABS: HEMATOCRIT 51.9 % (38.0-50.0); HEMOGLOBIN 17.6 gm/dL (13.0-16.0); MEAN CELL VOLUME 107.5 FL (83-96); MEAN CORPUSCULAR HEMOGLOBIN 36.5 PG (28-34); MEAN CORPUSCULAR HGB CONC 33.9 g/dL (30-36); RED BLOOD COUNT 4.83 X10e (3.90-5.60); RED CELL DISTRIBUTION WIDTH 13.5 % (11.0-15.5); WHITE BLOOD COUNT 8.6 X10e3 (4.0-10.5)
[2017-02-24 06:53] LABS: CALCIUM SERUM 9.6 mg/dL (8.4-10.2); CREATININE SERUM 0.8 mg/dL (0.6-1.4); GLOM FILT RATE Estimated 103.5 mL/min (>60); POTASSIUM 4.1 mmol/L (3.5-5.1)
[2017-02-24] MEDS ORDERED: PRINIVIL5 MG PO (17:05)
[2017-02-24] MEDS ORDERED: ALDACTONE25 MG PO (17:07)
[2017-02-24] MEDS ORDERED: NITROGLYCERIN0.4 MG SL (17:09)
[2017-02-24] MEDS ORDERED: LIPITOR80 MG PO (17:10)
[2017-02-24] MEDS ORDERED: COREG6.25 MG PO (17:12)
[2017-02-24] MEDS ORDERED: LIBRIUM25 M1 PO (17:13)
== END 2017-02-24 18:11 | disposition home or self-care (01) | DRG 280 ==
LOC: CED 12:31 → CEDOF 16:34 → C5B 16:34 → CED 17:23 → C5B 17:23 → CEDOF 17:23 → C5B 20:04 → CEDOF 20:04 → C5B 02-23 08:42
PROVIDERS: Emergency Medicine; Internal Medicine; Internal Medicine Cardiovascular Disease
DX: I21.4 Non-ST elevation (NSTEMI) myocardial infarction (principal); J96.01 Acute respiratory failure with hypoxia; R45.851 Suicidal ideations; I11.0 Hypertensive heart disease with heart failure; I50.22 Chronic systolic (congestive) heart failure; D75.1 Secondary polycythemia; E88.81 Metabolic syndrome and other insulin resistance; I25.10 Atherosclerotic heart disease of native coronary artery without angina pectoris; G47.33 Obstructive sleep apnea (adult) (pediatric); E78.5 Hyperlipidemia, unspecified; E66.9 Obesity, unspecified; Z68.33 Body mass index [BMI] 33.0-33.9, adult; F17.210 Nicotine dependence, cigarettes, uncomplicated; Z79.82 Long term (current) use of aspirin; F10.229 Alcohol dependence with intoxication, unspecified; M54.9 Dorsalgia, unspecified; G89.29 Other chronic pain; Y90.8 Blood alcohol level of 240 mg/100 ml or more
CPT/HCPCS: 36415; 71010; 80048; 80061; 80076; 80307; 82550; 82553; 83880; 84439; 84443; 84484; 85025; 85027; 85610; 85730; 86592; 93005; 94760; 97162; 97165; 99285; G0480; G8978-GP; G8979-GP; G8980-GP; G8987-GO; G8988-GO; G8989-GO; J3411; J7042